=== PATIENT | male | born 1955 | race Caucasian/White ===

== ENCOUNTER 2017-05-07 15:05 | Inpatient (IN) | payer OTHER ==
[~2017-05-07] VITALS: Ht 170.2 cm; Wt 115.0 kg
[2017-05-07 15:54] LABS: BASE EXCESS -5.1 mEq/L (-3 to +3); BICARBONATE 28.7 mEq/L (22-26); CARBOXY HGB 7.9 % (0-5); COMMENTS - BLOOD GASES A+C+; DEVICE VENT; FI02 100 %; METHEMOGLOBIN 1.8 % (0-1.5); MODE AC; PCO2 106 mm Hg (35-45); PO2 403 mm Hg (80-100); SITE RR; pH 7.04 (7.35-7.45)
[2017-05-07 15:55] LABS: MECHANICAL RATE 24 resp/min; PEEP 5 CM/H20; TIDAL VOLUME 550 ML; TOTAL RESP RATE 24 resp/min
[2017-05-07 15:55] LABS: ANION GAP 19 MEQ/L (2-14); CHLORIDE 99 mEq/L (99-109); CREATININE 3.3 mg/dL (0.6-1.3); GLUCOSE 138 mg/dL (70-99); ISTAT DEVICE 359068; POTASSIUM > 6.0 mEq/L (3.7-5.4); SODIUM 135 mEq/L (136-147); UREA NITROGEN (BUN) 43 mg/dL (9-23)
[2017-05-07 16:03] LABS: EOSINOPHIL (%) 0 % (0-5); HEMATOCRIT 46.9 % (38.0-50.0); IMMATURE GRANULOCYTE (%) 1.8 % (0.0-0.7); IMMATURE GRANULOCYTE COUNT 0.4 K/uL; INSTRUMENT ABS NEUTROPHIL CT 16.6 K/uL; LYMPHOCYTE COUNT 1.8 K/uL (1.0-2.8); MCH 31.3 PG (29.0-34.0); MCHC 31.1 G/DL (30.0-36.0); MCV 100.6 FL (86-99); MEAN PLAT.VOLUME 12.2 uM^3 (9.0-12.4); MONOCYTE (%) 9.8 % (3-12); NEUTROPHIL (%) 79.7 % (45-76); NEUTROPHIL COUNT 16.6 K/uL (1.8-6.4); PLATELET COUNT 226 K/uL (156-360); RBC DIS.WIDTH-CV 14.6 % (11.8-14.6); RBC DIS.WIDTH-SD 54.3 % (39-53); RED BLOOD COUNT 4.66 M/uL (4.00-5.50); WHITE BLOOD COUNT 20.8 K/uL (4.1-10.2)
[2017-05-07 16:14] LABS: CHLORIDE 101 mEq/L (99-109); SODIUM 143 mEq/L (136-147)
[2017-05-07 16:15] LABS: ADD MIUA? YES; BILIRUBIN NEGATIVE; BLOOD NEGATIVE; COLOR AMBER ((YELLOW)); GLUCOSE (STRIP) NEGATIVE; KETONES NEGATIVE; LEUKOCYTES NEGATIVE; NITRITE NEGATIVE; PROTEIN (STRIP) 30; SPECIFIC GRAVITY 1.015 (1.000-1.030)
[2017-05-07 16:15] LABS: AMYLASE 266 IU/L (1-118)
[2017-05-07 16:15] LABS: INTER. NORMALIZED RATIO 1.2; PROTHROMBIN TIME 11.9 (9.2-11.2); PTT 22.4 (25-32)
[2017-05-07 16:16] LABS: GLUCOSE 155 mg/dL (70-99)
[2017-05-07 16:17] LABS: ANION GAP 20 MEQ/L (2-14)
[2017-05-07 16:18] LABS: TOTAL BILIRUBIN 0.4 mg/dL (0.0-1.0)
[2017-05-07 16:19] LABS: ALKALINE PHOSPHATASE 73 IU/L (3-129); SERUM ETHYL ALCOHOL < 10 mg/dL
[2017-05-07 16:20] LABS: GFR ESTIMATE (CALCULATED) 19 mL/min/
[2017-05-07 16:21] LABS: DIRECT BILIRUBIN 0.2 mg/dL (0.0-0.3); UREA NITROGEN (BUN) 34 mg/dL (9-23)
[2017-05-07 16:23] LABS: AMPHETAMINE NEGATIVE (500 ng/mL); BARBITURATES NEGATIVE (200 ng/mL); BENZODIAZEPINES NEGATIVE (150 ng/mL); COCAINE NEGATIVE (150 ng/mL); INTERNAL CONTROLS VALID? YES; METHADONE PRESUMPTIVE POSITIVE (200 ng/mL); METHAMPHETAMINE NEGATIVE (500 ng/mL); OPIATES (MORPHINE) PRESUMPTIVE POSITIVE (100 ng/mL); OXYCODONE PRESUMPTIVE POSITIVE (100 ng/mL); PHENCYCLIDINE NEGATIVE (25 ng/mL); PROPOXYPHENE NEGATIVE (300 ng/mL); THC CANNABINOIDS PRESUMPTIVE POSITIVE (50 ng/mL); TRICYCLIC ANTIDEPRESSANTS NEGATIVE (300 ng/mL)
[2017-05-07 16:23] LABS: LIPASE 318 U/L (1.0-51.0)
[2017-05-07 16:24] LABS: ADD MEDTOX COMMENT Y
[2017-05-07 16:34] LABS: TROP-I INTERPRETATION POSITIVE; TROPONIN-I 3.64 ng/mL (0.0-0.30)
[2017-05-07 16:56] LABS: BACTERIA 1+ /HPF; CASTS PRESENT /LPF; CRYSTALS NONE SEEN; EPITHELIAL CELLS RARE /HPF; MUCUS RARE /LPF; RED BLOOD CELLS 0-5 /HPF (0-5); UCUL ADDED? NO
[2017-05-07 17:05] LABS: CK-MB 79.9 ng/mL (0.0-4.9)
[2017-05-07 17:18] LABS: TOTAL CK 15178 IU/L (1-294)
[2017-05-07 17:19] LABS: CREATINE KINASE 15178 IU/L (1-294)
[2017-05-07 17:34] LABS: BASE EXCESS -5.4 mEq/L (-3 to +3); CARBOXY HGB 5.1 % (0-5); COMMENTS - BLOOD GASES C+; DEVICE VENT; FI02 80 %; METHEMOGLOBIN 1.9 % (0-1.5); PCO2 70 mm Hg (35-45); PO2 142 mm Hg (80-100); SITE RB; pH 7.16 (7.35-7.45)
[2017-05-07 17:35] LABS: MECHANICAL RATE 28 resp/min; MODE AC; PEEP 5 CM/H20; TIDAL VOLUME 550 ML; TOTAL RESP RATE 28 resp/min
[2017-05-07 17:38] LABS: CREATININE 3.4 mg/dL (0.6-1.3); POTASSIUM 4.6 mEq/L (3.7-5.4)
[2017-05-07 19:30] VITALS: BP 153/107
[2017-05-07 19:45] VITALS: BP 153/107
[2017-05-07 20:00] VITALS: BP 180/126
[2017-05-07 20:17] LABS: BICARBONATE 21.9 mEq/L (22-26); CARBOXY HGB 2.9 % (0-5); COMMENTS - BLOOD GASES C+; METHEMOGLOBIN 2.6 % (0-1.5); PCO2 56 mm Hg (35-45); PO2 141 mm Hg (80-100); SITE LR
[2017-05-07 20:18] LABS: DEVICE 840; FI02 80 %; MECHANICAL RATE 28 resp/min; MODE AC; PEEP 5 CM/H20; TIDAL VOLUME 550 ML; TOTAL RESP RATE 28 resp/min
[2017-05-07 21:00] VITALS: BP 135/95
[2017-05-07 21:06] LABS: HEMATOCRIT 45.9 % (38.0-50.0); MCH 31.1 PG (29.0-34.0); MCHC 32.5 G/DL (30.0-36.0); MCV 95.8 FL (86-99); MEAN PLAT.VOLUME 12.2 uM^3 (9.0-12.4); PLATELET COUNT 171 K/uL (156-360); RBC DIS.WIDTH-CV 14.3 % (11.8-14.6); RBC DIS.WIDTH-SD 50.8 % (39-53); RED BLOOD COUNT 4.79 M/uL (4.00-5.50); WHITE BLOOD COUNT 17.6 K/uL (4.1-10.2)
[2017-05-07 21:34] LABS: METH RESISTANT S AUREUS PCR NEGATIVE (NEGATIVE)
[2017-05-07 21:35] LABS: TROP-I INTERPRETATION POSITIVE; TROPONIN-I 8.36 ng/mL (0.0-0.30)
[2017-05-07 21:40] LABS: PROBE CHECK PASS; SPECIMEN PROCESSING CONTROL PASS
[2017-05-07 21:44] LABS: BASE EXCESS -7.1 mEq/L (-3 to +3); BICARBONATE 22.6 mEq/L (22-26); CARBOXY HGB 2.3 % (0-5); COMMENTS - BLOOD GASES C+; DEVICE 840; FI02 100 %; METHEMOGLOBIN 2.4 % (0-1.5); PCO2 62 mm Hg (35-45); PO2 339 mm Hg (80-100); SITE LR; pH 7.17 (7.35-7.45)
[2017-05-07 21:45] LABS: MECHANICAL RATE 28 resp/min; MODE AC; PEEP 5 CM/H20; TIDAL VOLUME 550 ML; TOTAL RESP RATE 28 resp/min
[2017-05-07 22:00] VITALS: BP 84/62
[2017-05-07 22:00] LABS: ALKALINE PHOSPHATASE 77 IU/L (3-129); ANION GAP 18 MEQ/L (2-14); CHLORIDE 103 MEQ/L (99-109); GFR ESTIMATE (CALCULATED) 21 mL/min/; GLUCOSE 130 mg/dL (70-99); MAGNESIUM 2.2 mg/dl (1.3-2.7); SAMPLE HEMOLYSIS CHECK 2; SAMPLE ICTERIC CHECK 0; SAMPLE LIPEMIA CHECK 0; SODIUM 143 MEQ/L (136-147); TOTAL CK 15961 IU/L (1-294); UREA NITROGEN (BUN) 39 mg/dL (9-23)
[2017-05-07 22:01] LABS: CREATINE KINASE 15961 IU/L (1-294)
[2017-05-07 22:32] LABS: CK-MB 142.5 ng/mL (0.0-4.9)
[2017-05-07 22:42] LABS: NO-CHARGE AST (GOT) 987 IU/L (15-37)
[2017-05-07 23:00] VITALS: BP 87/56
[2017-05-07 23:04] LABS: BASE EXCESS -2.9 mEq/L (-3 to +3); BICARBONATE 24.8 mEq/L (22-26); CARBOXY HGB 1.8 % (0-5); COMMENTS - BLOOD GASES C; DEVICE 840; FI02 100 %; MECHANICAL RATE 30 resp/min; METHEMOGLOBIN 2.2 % (0-1.5); MODE AC; PCO2 54 mm Hg (35-45); PO2 352 mm Hg (80-100); SITE LR ALINE; TOTAL RESP RATE 30 resp/min; pH 7.27 (7.35-7.45)
[2017-05-07 23:05] LABS: PEEP 5 CM/H20; TIDAL VOLUME 600 ML
[2017-05-08] VITALS (11 sets, daily range): BP systolic 105–122; BP diastolic 64–77
[2017-05-08 01:24] LABS: BASE EXCESS -1.1 mEq/L (-3 to +3); BICARBONATE 24.8 mEq/L (22-26); CARBOXY HGB 1.6 % (0-5); COMMENTS - BLOOD GASES C; DEVICE 840; FI02 100 %; MECHANICAL RATE 24 resp/min; METHEMOGLOBIN 2.4 % (0-1.5); MODE AC; PCO2 45 mm Hg (35-45); PEEP 5 CM/H20; PO2 409 mm Hg (80-100); SITE LR ALINE; TIDAL VOLUME 650 ML; TOTAL RESP RATE 24 resp/min; pH 7.35 (7.35-7.45)
[2017-05-08 01:46] LABS: CHLORIDE 107 mEq/L (99-109); POTASSIUM 4.7 mEq/L (3.7-5.4); SODIUM 144 mEq/L (136-147)
[2017-05-08 01:47] LABS: MAGNESIUM 1.6 mg/dL (1.3-2.7)
[2017-05-08 01:48] LABS: GLUCOSE 151 mg/dL (70-99)
[2017-05-08 01:49] LABS: ANION GAP 14 MEQ/L (2-14)
[2017-05-08 01:52] LABS: GFR ESTIMATE (CALCULATED) 18 mL/min/
[2017-05-08 01:53] LABS: UREA NITROGEN (BUN) 44 mg/dL (9-23)
[2017-05-08 01:55] LABS: INTER. NORMALIZED RATIO 1.2; LIPASE 62 U/L (1.0-51.0); PROTHROMBIN TIME 12.2 (9.2-11.2); PTT 25.1 (25-32)
[2017-05-08 02:24] LABS: CREATINE KINASE 15316 IU/L (1-294)
[2017-05-08 03:09] LABS: INTERNAL CONTROL VALID? YES
[2017-05-08 03:40] LABS: C DIFF TOXIN NEGATIVE (NEGATIVE)
[2017-05-08 03:43] LABS: PROBE CHECK PASS; SPECIMEN PROCESSING CONTROL PASS
[2017-05-08 05:23] LABS: HEMATOCRIT 39.3 % (38.0-50.0); MCH 31.3 PG (29.0-34.0); MCHC 33.8 G/DL (30.0-36.0); MCV 92.5 FL (86-99); MEAN PLAT.VOLUME 12.1 uM^3 (9.0-12.4); PLATELET COUNT 147 K/uL (156-360); RBC DIS.WIDTH-CV 14.3 % (11.8-14.6); RBC DIS.WIDTH-SD 48.8 % (39-53); RED BLOOD COUNT 4.25 M/uL (4.00-5.50); WHITE BLOOD COUNT 12.2 K/uL (4.1-10.2)
[2017-05-08 05:59] LABS: ANION GAP 12 MEQ/L (2-14); CHLORIDE 107 MEQ/L (99-109); GFR ESTIMATE (CALCULATED) 19 mL/min/; GLUCOSE 134 mg/dL (70-99); SAMPLE HEMOLYSIS CHECK 0; SAMPLE ICTERIC CHECK 0; SAMPLE LIPEMIA CHECK 0; SODIUM 143 MEQ/L (136-147); UREA NITROGEN (BUN) 49 mg/dL (9-23)
[2017-05-08 07:21] LABS: BASE EXCESS 1.1 mEq/L (-3 to +3); BICARBONATE 25.1 mEq/L (22-26); CARBOXY HGB 1.6 % (0-5); PCO2 37 mm Hg (35-45); PO2 76 mm Hg (80-100); SITE ALINE; pH 7.44 (7.35-7.45)
[2017-05-08 07:22] LABS: COMMENTS - BLOOD GASES C+ANA; DEVICE 840 PB; FI02 50 %; MECHANICAL RATE 24 resp/min; MODE AC; PEEP 5 CM/H20; TIDAL VOLUME 650 ML; TOTAL RESP RATE 24 resp/min
[2017-05-08 13:16] LABS: ANION GAP 14 MEQ/L (2-14); CHLORIDE 109 MEQ/L (99-109); POTASSIUM 3.9 MEQ/L (3.7-5.4); SAMPLE HEMOLYSIS CHECK 0; SAMPLE ICTERIC CHECK 0; SAMPLE LIPEMIA CHECK 0; SODIUM 143 MEQ/L (136-147)
[2017-05-08 13:18] LABS: MAGNESIUM 1.6 mg/dl (1.3-2.7); TOTAL BILIRUBIN 0.7 MG/DL (0.0-1.0)
[2017-05-08 13:29] LABS: TROP-I INTERPRETATION POSITIVE; TROPONIN-I 12.77 ng/mL (0.0-0.30)
[2017-05-08 14:02] LABS: CK-MB 55.4 ng/mL (0.0-4.9)
[2017-05-08 14:30] LABS: ALKALINE PHOSPHATASE 50 IU/L (3-129); GFR ESTIMATE (CALCULATED) 17 mL/min/; UREA NITROGEN (BUN) 53 mg/dL (9-23)
[2017-05-08 14:33] LABS: GLUCOSE 99 mg/dL (70-99)
[2017-05-08] MEDS ORDERED: PERPHENAZINE4 MG PO (14:35)
[2017-05-08] MEDS ORDERED: FUROSEMIDE20 MG PO (14:36)
[2017-05-08] MEDS ORDERED: GRALISE300 MG PO (14:37)
[2017-05-08] MEDS ORDERED: CLOPIDOGREL75 MG PO (14:38)
[2017-05-08] MEDS ORDERED: LOSARTAN POTAS100 MG PO (14:38)
[2017-05-08] MEDS ORDERED: SERTRALINE HCL100 MG PO (14:39)
[2017-05-08] MEDS ORDERED: TRAZODONE HCL50 MG PO (14:39)
[2017-05-08] MEDS ORDERED: AMLODIPINE BESYL5 MG PO (14:40)
[2017-05-08] MEDS ORDERED: ATORVASTATIN CA80 MG PO (14:40)
[2017-05-08 15:45] LABS: TOTAL CK 6778 IU/L (1-294)
[2017-05-08 15:46] LABS: CREATINE KINASE 6778 IU/L (1-294)
[2017-05-08 18:04] LABS: ANION GAP 12 MEQ/L (2-14); CHLORIDE 110 MEQ/L (99-109); POTASSIUM 3.8 MEQ/L (3.7-5.4); SAMPLE HEMOLYSIS CHECK 0; SAMPLE ICTERIC CHECK 0; SAMPLE LIPEMIA CHECK 0; SODIUM 144 MEQ/L (136-147)
[2017-05-08 18:04] LABS: ANION GAP 10 MEQ/L (2-14); CHLORIDE 111 MEQ/L (99-109); MAGNESIUM 1.6 mg/dl (1.3-2.7); POTASSIUM 3.8 MEQ/L (3.7-5.4); SAMPLE HEMOLYSIS CHECK 0; SAMPLE ICTERIC CHECK 0; SAMPLE LIPEMIA CHECK 0; SODIUM 144 MEQ/L (136-147); TOTAL BILIRUBIN 0.6 MG/DL (0.0-1.0)
[2017-05-08 18:10] LABS: GFR ESTIMATE (CALCULATED) 20 mL/min/; GLUCOSE 85 mg/dL (70-99); UREA NITROGEN (BUN) 48 mg/dL (9-23)
[2017-05-08 18:34] LABS: ALKALINE PHOSPHATASE 46 IU/L (3-129); GFR ESTIMATE (CALCULATED) 19 mL/min/; GLUCOSE 86 mg/dL (70-99); UREA NITROGEN (BUN) 48 mg/dL (9-23)
[2017-05-08 18:44] LABS: TROP-I INTERPRETATION POSITIVE; TROPONIN-I 8.17 ng/mL (0.0-0.30)
[2017-05-08 19:18] LABS: TOTAL CK 5451 IU/L (1-294)
[2017-05-08 19:24] LABS: CREATINE KINASE 5451 IU/L (1-294)
[2017-05-08 19:42] LABS: CK-MB 40.1 ng/mL (0.0-4.9)
[2017-05-08 22:13] LABS: ANION GAP 10 MEQ/L (2-14); CHLORIDE 109 MEQ/L (99-109); GFR ESTIMATE (CALCULATED) 26 mL/min/; GLUCOSE 86 mg/dL (70-99); POTASSIUM 3.6 MEQ/L (3.7-5.4); SAMPLE HEMOLYSIS CHECK 0; SAMPLE ICTERIC CHECK 0; SAMPLE LIPEMIA CHECK 0; SODIUM 142 MEQ/L (136-147); UREA NITROGEN (BUN) 38 mg/dL (9-23)
[2017-05-09 00:45] LABS: CHLORIDE 111 mEq/L (99-109); POTASSIUM 3.9 mEq/L (3.7-5.4); SODIUM 141 mEq/L (136-147)
[2017-05-09 00:46] LABS: MAGNESIUM 1.7 mg/dL (1.3-2.7)
[2017-05-09 00:47] LABS: GLUCOSE 91 mg/dL (70-99)
[2017-05-09 00:49] LABS: ANION GAP 10 MEQ/L (2-14)
[2017-05-09 00:51] LABS: ALKALINE PHOSPHATASE 55 IU/L (3-129); GFR ESTIMATE (CALCULATED) 29 mL/min/
[2017-05-09 00:52] LABS: UREA NITROGEN (BUN) 31 mg/dL (9-23)
[2017-05-09 01:00] LABS: CK-MB 30.6 ng/mL (0.0-4.9); TROP-I INTERPRETATION POSITIVE; TROPONIN-I 4.57 ng/mL (0.0-0.30)
[2017-05-09 01:06] LABS: TOTAL CK 6622 IU/L (1-294)
[2017-05-09 01:07] LABS: CREATINE KINASE 6622 IU/L (1-294); TOTAL BILIRUBIN 0.6 mg/dL (0.0-1.0)
[2017-05-09 05:42] LABS: EOSINOPHIL (%) 0.2 % (0-5); HEMATOCRIT 32.5 % (38.0-50.0); IMMATURE GRANULOCYTE (%) 0.3 % (0.0-0.7); INSTRUMENT ABS NEUTROPHIL CT 4.2 K/uL; LYMPHOCYTE COUNT 1.1 K/uL (1.0-2.8); MCHC 33.5 G/DL (30.0-36.0); MCV 92.3 FL (86-99); MEAN PLAT.VOLUME 11.9 uM^3 (9.0-12.4); MONOCYTE (%) 12.1 % (3-12); MONOCYTE COUNT 0.7 K/uL (0-0.8); NEUTROPHIL (%) 69.1 % (45-76); NEUTROPHIL COUNT 4.2 K/uL (1.8-6.4); PLATELET COUNT 108 K/uL (156-360); RBC DIS.WIDTH-CV 14.6 % (11.8-14.6); RBC DIS.WIDTH-SD 50.2 % (39-53); RED BLOOD COUNT 3.52 M/uL (4.00-5.50)
[2017-05-09 06:35] LABS: TROP-I INTERPRETATION POSITIVE; TROPONIN-I 3.46 ng/mL (0.0-0.30)
[2017-05-09 08:04] LABS: ALKALINE PHOSPHATASE 44 IU/L (3-129); CHLORIDE 108 MEQ/L (99-109); GLUCOSE 93 mg/dL (70-99); POTASSIUM 3.6 MEQ/L (3.7-5.4); SAMPLE HEMOLYSIS CHECK 0; SAMPLE ICTERIC CHECK 0; SAMPLE LIPEMIA CHECK 0; SODIUM 141 MEQ/L (136-147); TOTAL BILIRUBIN 0.6 MG/DL (0.0-1.0); UREA NITROGEN (BUN) 22 mg/dL (9-23)
[2017-05-09 08:05] LABS: ANION GAP 9 MEQ/L (2-14); GFR ESTIMATE (CALCULATED) 41 mL/min/; VANCOMYCIN, TROUGH 6.9 MCG/ML (10-20)
[2017-05-09 08:16] LABS: TOTAL CK 4803 IU/L (1-294)
[2017-05-09 08:17] LABS: CREATINE KINASE 4803 IU/L (1-294)
[2017-05-09 08:31] LABS: CK-MB 29.5 ng/mL (0.0-4.9)
[2017-05-09 10:10] LABS: BASE EXCESS 1.1 mEq/L (-3 to +3); METHEMOGLOBIN 1.9 % (0-1.5); PCO2 36 mm Hg (35-45); PO2 82 mm Hg (80-100); SITE ALINE; pH 7.45 (7.35-7.45)
[2017-05-09 10:11] LABS: COMMENTS - BLOOD GASES +C; DEVICE VENT; FI02 30 %; MODE TUBE COMP; TOTAL RESP RATE 12 resp/min
[2017-05-09 10:12] LABS: PEEP 5 CM/H20
[2017-05-09 10:22] LABS: ANION GAP 8 MEQ/L (2-14); CHLORIDE 107 MEQ/L (99-109); GFR ESTIMATE (CALCULATED) 47 mL/min/; GLUCOSE 90 mg/dL (70-99); POTASSIUM 3.9 MEQ/L (3.7-5.4); SAMPLE HEMOLYSIS CHECK 0; SAMPLE ICTERIC CHECK 0; SAMPLE LIPEMIA CHECK 0; SODIUM 140 MEQ/L (136-147); UREA NITROGEN (BUN) 18 mg/dL (9-23)
[2017-05-09 12:00] VITALS: BP 107/73
[2017-05-09 12:48] LABS: TROP-I INTERPRETATION POSITIVE
[2017-05-09 13:35] LABS: CK-MB 18.5 ng/mL (0.0-4.9)
[2017-05-09 13:47] LABS: ALKALINE PHOSPHATASE 42 IU/L (3-129); ANION GAP 5 MEQ/L (2-14); CHLORIDE 108 MEQ/L (99-109); CREATINE KINASE 3581 IU/L (1-294); GFR ESTIMATE (CALCULATED) 55 mL/min/; GLUCOSE 91 mg/dL (70-99); POTASSIUM 3.9 MEQ/L (3.7-5.4); SAMPLE HEMOLYSIS CHECK 0; SAMPLE ICTERIC CHECK 0; SAMPLE LIPEMIA CHECK 0; SODIUM 140 MEQ/L (136-147); TOTAL BILIRUBIN 0.6 MG/DL (0.0-1.0); TOTAL CK 3581 IU/L (1-294); UREA NITROGEN (BUN) 15 mg/dL (9-23)
[2017-05-09 15:01] LABS: INTER. NORMALIZED RATIO 1.2; PROTHROMBIN TIME 11.9 (9.2-11.2)
[2017-05-09 15:07] LABS: PTT 46.7 (25-32)
[2017-05-09 16:18] LABS: ANION GAP 6 MEQ/L (2-14); CHLORIDE 109 MEQ/L (99-109); GFR ESTIMATE (CALCULATED) 55 mL/min/; GLUCOSE 92 mg/dL (70-99); SAMPLE HEMOLYSIS CHECK 0; SAMPLE ICTERIC CHECK 0; SAMPLE LIPEMIA CHECK 0; SODIUM 140 MEQ/L (136-147); UREA NITROGEN (BUN) 14 mg/dL (9-23)
[2017-05-09 18:48] LABS: TROP-I INTERPRETATION POSITIVE; TROPONIN-I 2.36 ng/mL (0.0-0.30)
[2017-05-09 18:49] LABS: ALKALINE PHOSPHATASE 43 IU/L (3-129); ANION GAP 6 MEQ/L (2-14); CHLORIDE 107 MEQ/L (99-109); GFR ESTIMATE (CALCULATED) > 59 mL/min/; GLUCOSE 95 mg/dL (70-99); MAGNESIUM 2.1 mg/dl (1.3-2.7); POTASSIUM 4.1 MEQ/L (3.7-5.4); SAMPLE HEMOLYSIS CHECK 0; SAMPLE ICTERIC CHECK 0; SAMPLE LIPEMIA CHECK 0; SODIUM 138 MEQ/L (136-147); TOTAL BILIRUBIN 0.7 MG/DL (0.0-1.0); TOTAL CK 3042 IU/L (1-294); UREA NITROGEN (BUN) 12 mg/dL (9-23)
[2017-05-09 18:50] LABS: CREATINE KINASE 3042 IU/L (1-294)
[2017-05-09 19:12] LABS: CK-MB 17.8 ng/mL (0.0-4.9)
[2017-05-09 21:31] LABS: ANION GAP 9 MEQ/L (2-14); CHLORIDE 107 MEQ/L (99-109); GFR ESTIMATE (CALCULATED) > 59 mL/min/; GLUCOSE 92 mg/dL (70-99); SAMPLE HEMOLYSIS CHECK 0; SAMPLE ICTERIC CHECK 0; SAMPLE LIPEMIA CHECK 0; SODIUM 139 MEQ/L (136-147); UREA NITROGEN (BUN) 10 mg/dL (9-23)
[2017-05-10 00:47] LABS: CHLORIDE 107 mEq/L (99-109); SODIUM 138 mEq/L (136-147)
[2017-05-10 00:50] LABS: GLUCOSE 96 mg/dL (70-99)
[2017-05-10 00:51] LABS: ANION GAP 6 MEQ/L (2-14)
[2017-05-10 00:52] LABS: TOTAL BILIRUBIN 0.7 mg/dL (0.0-1.0)
[2017-05-10 00:53] LABS: ALKALINE PHOSPHATASE 49 IU/L (3-129)
[2017-05-10 00:54] LABS: GFR ESTIMATE (CALCULATED) > 59 mL/min/
[2017-05-10 00:55] LABS: UREA NITROGEN (BUN) 9 mg/dL (9-23)
[2017-05-10 00:57] LABS: CREATINE KINASE 2873 IU/L (1-294); TOTAL CK 2873 IU/L (1-294)
[2017-05-10 01:01] LABS: TROP-I INTERPRETATION POSITIVE; TROPONIN-I 2.12 ng/mL (0.0-0.30)
[2017-05-10 04:32] LABS: CHLORIDE 108 mEq/L (99-109); POTASSIUM 4.5 mEq/L (3.7-5.4); SODIUM 140 mEq/L (136-147)
[2017-05-10 04:34] LABS: GLUCOSE 86 mg/dL (70-99)
[2017-05-10 04:35] LABS: ANION GAP 7 MEQ/L (2-14)
[2017-05-10 04:38] LABS: GFR ESTIMATE (CALCULATED) > 59 mL/min/
[2017-05-10 04:39] LABS: UREA NITROGEN (BUN) 8 mg/dL (9-23)
[2017-05-10 05:59] LABS: EOSINOPHIL (%) 0.6 % (0-5); HEMATOCRIT 31.4 % (38.0-50.0); IMMATURE GRANULOCYTE (%) 0.2 % (0.0-0.7); INSTRUMENT ABS NEUTROPHIL CT 3.7 K/uL; LYMPHOCYTE COUNT 0.9 K/uL (1.0-2.8); MCHC 34.4 G/DL (30.0-36.0); MCV 93.2 FL (86-99); MEAN PLAT.VOLUME 12.6 uM^3 (9.0-12.4); MONOCYTE (%) 11.4 % (3-12); MONOCYTE COUNT 0.6 K/uL (0-0.8); NEUTROPHIL (%) 70.6 % (45-76); NEUTROPHIL COUNT 3.7 K/uL (1.8-6.4); PLATELET COUNT 106 K/uL (156-360); RBC DIS.WIDTH-CV 14.7 % (11.8-14.6); RBC DIS.WIDTH-SD 50.2 % (39-53); RED BLOOD COUNT 3.37 M/uL (4.00-5.50); WHITE BLOOD COUNT 5.2 K/uL (4.1-10.2)
[2017-05-10 06:29] LABS: TROP-I INTERPRETATION POSITIVE
[2017-05-10 06:32] LABS: ALKALINE PHOSPHATASE 49 IU/L (3-129); ANION GAP 5 MEQ/L (2-14); CHLORIDE 106 MEQ/L (99-109); GFR ESTIMATE (CALCULATED) > 59 mL/min/; GLUCOSE 81 mg/dL (70-99); MAGNESIUM 2.2 mg/dl (1.3-2.7); POTASSIUM 4.2 MEQ/L (3.7-5.4); SAMPLE HEMOLYSIS CHECK 0; SAMPLE ICTERIC CHECK 0; SAMPLE LIPEMIA CHECK 0; SODIUM 138 MEQ/L (136-147); TOTAL BILIRUBIN 0.8 MG/DL (0.0-1.0); UREA NITROGEN (BUN) 7 mg/dL (9-23)
[2017-05-10 07:23] LABS: CK-MB 12.1 ng/mL (0.0-4.9)
[2017-05-10 07:54] LABS: CREATINE KINASE 2197 IU/L (1-294); TOTAL CK 2197 IU/L (1-294)
[2017-05-10 13:21] LABS: TROP-I INTERPRETATION POSITIVE; TROPONIN-I 2.29 ng/mL (0.0-0.30)
[2017-05-10 13:45] LABS: ALKALINE PHOSPHATASE 55 IU/L (3-129); ANION GAP 7 MEQ/L (2-14); CHLORIDE 108 MEQ/L (99-109); GFR ESTIMATE (CALCULATED) > 59 mL/min/; GLUCOSE 90 mg/dL (70-99); MAGNESIUM 2.2 mg/dl (1.3-2.7); POTASSIUM 4.4 MEQ/L (3.7-5.4); SAMPLE HEMOLYSIS CHECK 0; SAMPLE ICTERIC CHECK 0; SAMPLE LIPEMIA CHECK 0; SODIUM 141 MEQ/L (136-147); TOTAL BILIRUBIN 0.9 MG/DL (0.0-1.0); UREA NITROGEN (BUN) 6 mg/dL (9-23)
[2017-05-10 16:18] LABS: CREATINE KINASE 1901 IU/L (1-294)
[2017-05-10 19:40] LABS: TROP-I INTERPRETATION POSITIVE; TROPONIN-I 3.06 ng/mL (0.0-0.30)
[2017-05-10 19:41] LABS: CHLORIDE 110 mEq/L (99-109); POTASSIUM 4.3 mEq/L (3.7-5.4); SODIUM 140 mEq/L (136-147)
[2017-05-10 19:42] LABS: MAGNESIUM 2.1 mg/dL (1.3-2.7)
[2017-05-10 19:44] LABS: GLUCOSE 86 mg/dL (70-99)
[2017-05-10 19:45] LABS: ANION GAP 8 MEQ/L (2-14)
[2017-05-10 19:48] LABS: ALKALINE PHOSPHATASE 56 IU/L (3-129); GFR ESTIMATE (CALCULATED) > 59 mL/min/
[2017-05-10 19:49] LABS: TOTAL BILIRUBIN 1.2 mg/dL (0.0-1.0); UREA NITROGEN (BUN) 7 mg/dL (9-23)
[2017-05-10 19:51] LABS: TOTAL CK 2027 IU/L (1-294)
[2017-05-10 19:53] LABS: CREATINE KINASE 2027 IU/L (1-294)
[2017-05-10 19:58] LABS: CK-MB 4.5 ng/mL (0.0-4.9)
[2017-05-11] VITALS (9 sets, daily range): BP systolic 164–215; BP diastolic 92–112
[2017-05-11 05:33] LABS: EOSINOPHIL (%) 0.2 % (0-5); HEMATOCRIT 29.7 % (38.0-50.0); IMMATURE GRANULOCYTE (%) 0.4 % (0.0-0.7); INSTRUMENT ABS NEUTROPHIL CT 3.7 K/uL; LYMPHOCYTE COUNT 1.1 K/uL (1.0-2.8); MCH 31.4 PG (29.0-34.0); MCV 95.2 FL (86-99); MEAN PLAT.VOLUME 12.1 uM^3 (9.0-12.4); MONOCYTE (%) 13.1 % (3-12); MONOCYTE COUNT 0.7 K/uL (0-0.8); NEUTROPHIL (%) 66.4 % (45-76); NEUTROPHIL COUNT 3.7 K/uL (1.8-6.4); PLATELET COUNT 99 K/uL (156-360); RBC DIS.WIDTH-CV 14.9 % (11.8-14.6); RBC DIS.WIDTH-SD 51.2 % (39-53); RED BLOOD COUNT 3.12 M/uL (4.00-5.50); WHITE BLOOD COUNT 5.6 K/uL (4.1-10.2)
[2017-05-11 05:51] LABS: ANION GAP 9 MEQ/L (2-14); CHLORIDE 112 MEQ/L (99-109); GFR ESTIMATE (CALCULATED) 44 mL/min/; GLUCOSE 101 mg/dL (70-99); MAGNESIUM 2.1 mg/dl (1.3-2.7); POTASSIUM 3.6 MEQ/L (3.7-5.4); SAMPLE HEMOLYSIS CHECK 0; SAMPLE ICTERIC CHECK 0; SAMPLE LIPEMIA CHECK 0; SODIUM 145 MEQ/L (136-147); UREA NITROGEN (BUN) 10 mg/dL (9-23)
[2017-05-11 11:29] LABS: BASE EXCESS 0.1 mEq/L (-3 to +3); BICARBONATE 23.3 mEq/L (22-26); METHEMOGLOBIN 2.1 % (0-1.5); PCO2 32 mm Hg (35-45); PO2 82 mm Hg (80-100); pH 7.47 (7.35-7.45)
[2017-05-11 11:30] LABS: COMMENTS - BLOOD GASES C+; DEVICE VENT; FI02 26 %; MODE TC; PEEP 5 CM/H20; SITE LR ALINE; TOTAL RESP RATE 23 resp/min
[2017-05-12] VITALS (23 sets, daily range): BP systolic 117–182; BP diastolic 72–122
[2017-05-12 06:43] LABS: EOSINOPHIL (%) 0 % (0-5); HEMATOCRIT 32.8 % (38.0-50.0); IMMATURE GRANULOCYTE (%) 1.6 % (0.0-0.7); IMMATURE GRANULOCYTE COUNT 0.1 K/uL; INSTRUMENT ABS NEUTROPHIL CT 6.5 K/uL; LYMPHOCYTE COUNT 0.8 K/uL (1.0-2.8); MCH 30.4 PG (29.0-34.0); MCHC 33.2 G/DL (30.0-36.0); MCV 91.6 FL (86-99); MEAN PLAT.VOLUME 11.5 uM^3 (9.0-12.4); MONOCYTE (%) 11.5 % (3-12); NEUTROPHIL (%) 77.7 % (45-76); NEUTROPHIL COUNT 6.5 K/uL (1.8-6.4); PLATELET COUNT 107 K/uL (156-360); RBC DIS.WIDTH-CV 14.4 % (11.8-14.6); RBC DIS.WIDTH-SD 48.5 % (39-53); RED BLOOD COUNT 3.58 M/uL (4.00-5.50); WHITE BLOOD COUNT 8.4 K/uL (4.1-10.2)
[2017-05-12 07:17] LABS: ANION GAP 13 MEQ/L (2-14); CHLORIDE 110 MEQ/L (99-109); GFR ESTIMATE (CALCULATED) 34 mL/min/; GLUCOSE 133 mg/dL (70-99); POTASSIUM 4.2 MEQ/L (3.7-5.4); SAMPLE HEMOLYSIS CHECK 2; SAMPLE ICTERIC CHECK 0; SAMPLE LIPEMIA CHECK 0; SODIUM 146 MEQ/L (136-147)
[2017-05-12 07:18] LABS: UREA NITROGEN (BUN) 25 mg/dL (9-23)
[2017-05-12 15:41] LABS: HDL CHOLESTEROL 31 MG/DL (Desirable>=40); LDL CHOLESTEROL 147 mg/dL (Desirable<100); NON-HDL CHOLESTEROL 182 mg/dL (Desirable<160); TOTAL CHOLESTEROL 213 mg/dL (Desirable<200); TRIGLYCERIDES 177 MG/DL (Normal: <150)
[2017-05-13] VITALS (13 sets, daily range): BP systolic 117–172; BP diastolic 78–111
[2017-05-13 01:52] LABS: EOSINOPHIL (%) 0.1 % (0-5); HEMATOCRIT 37.2 % (38.0-50.0); IMMATURE GRANULOCYTE (%) 1.3 % (0.0-0.7); IMMATURE GRANULOCYTE COUNT 0.2 K/uL; INSTRUMENT ABS NEUTROPHIL CT 8.7 K/uL; MCH 30.9 PG (29.0-34.0); MCHC 33.9 G/DL (30.0-36.0); MCV 91.2 FL (86-99); MEAN PLAT.VOLUME 10.9 uM^3 (9.0-12.4); MONOCYTE (%) 12.2 % (3-12); MONOCYTE COUNT 1.4 K/uL (0-0.8); NEUTROPHIL (%) 77.2 % (45-76); NEUTROPHIL COUNT 8.7 K/uL (1.8-6.4); PLATELET COUNT 116 K/uL (156-360); RBC DIS.WIDTH-CV 14.4 % (11.8-14.6); RED BLOOD COUNT 4.08 M/uL (4.00-5.50); WHITE BLOOD COUNT 11.3 K/uL (4.1-10.2)
[2017-05-13 02:04] LABS: CHLORIDE 108 mEq/L (99-109); SODIUM 147 mEq/L (136-147)
[2017-05-13 02:07] LABS: GLUCOSE 113 mg/dL (70-99)
[2017-05-13 02:08] LABS: ANION GAP 15 MEQ/L (2-14)
[2017-05-13 02:10] LABS: GFR ESTIMATE (CALCULATED) 39 mL/min/
[2017-05-13 02:11] LABS: UREA NITROGEN (BUN) 24 mg/dL (9-23)
[2017-05-13 02:26] LABS: MAGNESIUM 1.4 mg/dL (1.3-2.7)
[2017-05-13 13:39] LABS: ANION GAP 12 MEQ/L (2-14); CHLORIDE 107 MEQ/L (99-109); GFR ESTIMATE (CALCULATED) 47 mL/min/; GLUCOSE 112 mg/dL (70-99); POTASSIUM 3.5 MEQ/L (3.7-5.4); SAMPLE HEMOLYSIS CHECK 0; SAMPLE ICTERIC CHECK 0; SAMPLE LIPEMIA CHECK 0; SODIUM 147 MEQ/L (136-147); UREA NITROGEN (BUN) 27 mg/dL (9-23)
[2017-05-14] VITALS (7 sets, daily range): BP systolic 117–159; BP diastolic 74–101
[2017-05-14 07:38] LABS: EOSINOPHIL (%) 1.2 % (0-5); EOSINOPHIL COUNT 0.1 K/uL (0-0.3); HEMATOCRIT 37.7 % (38.0-50.0); IMMATURE GRANULOCYTE (%) 1.2 % (0.0-0.7); IMMATURE GRANULOCYTE COUNT 0.1 K/uL; INSTRUMENT ABS NEUTROPHIL CT 7.2 K/uL; LYMPHOCYTE COUNT 1.3 K/uL (1.0-2.8); MCH 31.6 PG (29.0-34.0); MCHC 34.5 G/DL (30.0-36.0); MCV 91.7 FL (86-99); MEAN PLAT.VOLUME 11.6 uM^3 (9.0-12.4); MONOCYTE (%) 12.1 % (3-12); MONOCYTE COUNT 1.2 K/uL (0-0.8); NEUTROPHIL (%) 72.2 % (45-76); NEUTROPHIL COUNT 7.2 K/uL (1.8-6.4); PLATELET COUNT 117 K/uL (156-360); RBC DIS.WIDTH-CV 14.4 % (11.8-14.6); RBC DIS.WIDTH-SD 48.6 % (39-53); RED BLOOD COUNT 4.11 M/uL (4.00-5.50)
[2017-05-14 07:40] LABS: ANION GAP 14 MEQ/L (2-14); CHLORIDE 109 MEQ/L (99-109); GFR ESTIMATE (CALCULATED) 44 mL/min/; GLUCOSE 93 mg/dL (70-99); POTASSIUM 3.6 MEQ/L (3.7-5.4); SAMPLE HEMOLYSIS CHECK 1; SAMPLE ICTERIC CHECK 0; SAMPLE LIPEMIA CHECK 0; SODIUM 146 MEQ/L (136-147); UREA NITROGEN (BUN) 27 mg/dL (9-23)
[2017-05-14 07:42] LABS: MAGNESIUM 1.5 mg/dl (1.3-2.7)
[2017-05-15] VITALS (9 sets, daily range): BP systolic 100–144; BP diastolic 67–90
[2017-05-15 07:34] LABS: EOSINOPHIL (%) 2.1 % (0-5); EOSINOPHIL COUNT 0.2 K/uL (0-0.3); HEMATOCRIT 35.4 % (38.0-50.0); IMMATURE GRANULOCYTE (%) 1.2 % (0.0-0.7); IMMATURE GRANULOCYTE COUNT 0.1 K/uL; INSTRUMENT ABS NEUTROPHIL CT 5.4 K/uL; LYMPHOCYTE COUNT 1.4 K/uL (1.0-2.8); MCH 31.6 PG (29.0-34.0); MCHC 34.5 G/DL (30.0-36.0); MCV 91.7 FL (86-99); MEAN PLAT.VOLUME 11.9 uM^3 (9.0-12.4); MONOCYTE (%) 12.5 % (3-12); NEUTROPHIL (%) 66.8 % (45-76); NEUTROPHIL COUNT 5.4 K/uL (1.8-6.4); PLATELET COUNT 118 K/uL (156-360); RBC DIS.WIDTH-SD 47.3 % (39-53); RED BLOOD COUNT 3.86 M/uL (4.00-5.50); WHITE BLOOD COUNT 8.1 K/uL (4.1-10.2)
[2017-05-15 08:04] LABS: ANION GAP 10 MEQ/L (2-14); CHLORIDE 108 MEQ/L (99-109); GFR ESTIMATE (CALCULATED) 51 mL/min/; GLUCOSE 95 mg/dL (70-99); POTASSIUM 3.2 MEQ/L (3.7-5.4); SAMPLE HEMOLYSIS CHECK 0; SAMPLE ICTERIC CHECK 0; SAMPLE LIPEMIA CHECK 0; SODIUM 141 MEQ/L (136-147); UREA NITROGEN (BUN) 24 mg/dL (9-23)
[2017-05-15 08:06] LABS: MAGNESIUM 1.2 mg/dl (1.3-2.7)
[2017-05-16 02:55] VITALS: BP 152/75
[2017-05-16 05:37] LABS: EOSINOPHIL (%) 1.8 % (0-5); EOSINOPHIL COUNT 0.1 K/uL (0-0.3); HEMATOCRIT 32.4 % (38.0-50.0); IMMATURE GRANULOCYTE (%) 0.9 % (0.0-0.7); IMMATURE GRANULOCYTE COUNT 0.1 K/uL; LYMPHOCYTE COUNT 1.4 K/uL (1.0-2.8); MCH 30.7 PG (29.0-34.0); MCHC 34.6 G/DL (30.0-36.0); MCV 88.8 FL (86-99); MEAN PLAT.VOLUME 11.4 uM^3 (9.0-12.4); MONOCYTE (%) 11.4 % (3-12); MONOCYTE COUNT 0.8 K/uL (0-0.8); PLATELET COUNT 131 K/uL (156-360); RBC DIS.WIDTH-CV 13.5 % (11.8-14.6); RBC DIS.WIDTH-SD 44.4 % (39-53); RED BLOOD COUNT 3.65 M/uL (4.00-5.50); WHITE BLOOD COUNT 7.4 K/uL (4.1-10.2)
[2017-05-16 07:22] LABS: Estimated Average Glucose 111 mg/dL (70-123); HEMOGLOBIN A1c (GLYCOHEMOGLOB) 5.5 % HGB (Below 5.7)
[2017-05-16 07:37] VITALS: BP 144/88
[2017-05-16 08:21] LABS: ANION GAP 12 MEQ/L (2-14); CHLORIDE 107 MEQ/L (99-109); GFR ESTIMATE (CALCULATED) > 59 mL/min/; GLUCOSE 87 mg/dL (70-99); POTASSIUM 3.1 MEQ/L (3.7-5.4); SAMPLE HEMOLYSIS CHECK 0; SAMPLE ICTERIC CHECK 0; SAMPLE LIPEMIA CHECK 0; SODIUM 139 MEQ/L (136-147); UREA NITROGEN (BUN) 18 mg/dL (9-23)
[2017-05-16 08:22] LABS: MAGNESIUM 1.4 mg/dl (1.3-2.7)
[2017-05-16 12:19] VITALS: BP 158/76
[2017-05-16 16:02] VITALS: BP 151/89
[2017-05-16 18:47] VITALS: BP 109/57
[2017-05-16 23:49] VITALS: BP 127/72
[2017-05-17 05:49] LABS: EOSINOPHIL (%) 0.9 % (0-5); EOSINOPHIL COUNT 0.1 K/uL (0-0.3); IMMATURE GRANULOCYTE (%) 0.7 % (0.0-0.7); IMMATURE GRANULOCYTE COUNT 0.1 K/uL; INSTRUMENT ABS NEUTROPHIL CT 5.5 K/uL; LYMPHOCYTE COUNT 1.6 K/uL (1.0-2.8); MCH 30.2 PG (29.0-34.0); MCHC 33.2 G/DL (30.0-36.0); MCV 90.9 FL (86-99); MEAN PLAT.VOLUME 12.3 uM^3 (9.0-12.4); MONOCYTE (%) 11.7 % (3-12); NEUTROPHIL (%) 66.8 % (45-76); NEUTROPHIL COUNT 5.5 K/uL (1.8-6.4); PLATELET COUNT 149 K/uL (156-360); RBC DIS.WIDTH-CV 13.8 % (11.8-14.6); RBC DIS.WIDTH-SD 45.7 % (39-53); RED BLOOD COUNT 3.74 M/uL (4.00-5.50); WHITE BLOOD COUNT 8.2 K/uL (4.1-10.2)
[2017-05-17 06:14] LABS: ANION GAP 10 MEQ/L (2-14); CHLORIDE 107 MEQ/L (99-109); GFR ESTIMATE (CALCULATED) > 59 mL/min/; GLUCOSE 96 mg/dL (70-99); MAGNESIUM 1.4 mg/dl (1.3-2.7); POTASSIUM 3.5 MEQ/L (3.7-5.4); SAMPLE HEMOLYSIS CHECK 0; SAMPLE ICTERIC CHECK 0; SAMPLE LIPEMIA CHECK 0; SODIUM 138 MEQ/L (136-147); UREA NITROGEN (BUN) 17 mg/dL (9-23)
[2017-05-17 07:31] VITALS: BP 115/76
[2017-05-17 15:08] VITALS: BP 138/71
[2017-05-18 00:11] VITALS: BP 115/56
[2017-05-18 05:37] LABS: EOSINOPHIL (%) 0.9 % (0-5); EOSINOPHIL COUNT 0.1 K/uL (0-0.3); HEMATOCRIT 30.7 % (38.0-50.0); IMMATURE GRANULOCYTE (%) 0.7 % (0.0-0.7); IMMATURE GRANULOCYTE COUNT 0.1 K/uL; INSTRUMENT ABS NEUTROPHIL CT 6.2 K/uL; LYMPHOCYTE COUNT 1.8 K/uL (1.0-2.8); MCH 31.9 PG (29.0-34.0); MCHC 35.2 G/DL (30.0-36.0); MCV 90.6 FL (86-99); MEAN PLAT.VOLUME 12.7 uM^3 (9.0-12.4); MONOCYTE (%) 10.7 % (3-12); NEUTROPHIL COUNT 6.2 K/uL (1.8-6.4); PLATELET COUNT 169 K/uL (156-360); RBC DIS.WIDTH-SD 45.9 % (39-53); RED BLOOD COUNT 3.39 M/uL (4.00-5.50); WHITE BLOOD COUNT 9.1 K/uL (4.1-10.2)
[2017-05-18 06:28] LABS: ANION GAP 13 MEQ/L (2-14); CHLORIDE 108 MEQ/L (99-109); GFR ESTIMATE (CALCULATED) > 59 mL/min/; GLUCOSE 93 mg/dL (70-99); POTASSIUM 3.6 MEQ/L (3.7-5.4); SAMPLE HEMOLYSIS CHECK 0; SAMPLE ICTERIC CHECK 0; SAMPLE LIPEMIA CHECK 0; SODIUM 141 MEQ/L (136-147); UREA NITROGEN (BUN) 15 mg/dL (9-23)
[2017-05-18 07:22] VITALS: BP 145/79
[2017-05-18 14:18] VITALS: BP 146/85
[2017-05-19 00:09] VITALS: BP 112/71
[2017-05-19 06:17] LABS: EOSINOPHIL (%) 0.7 % (0-5); EOSINOPHIL COUNT 0.1 K/uL (0-0.3); HEMATOCRIT 32.9 % (38.0-50.0); IMMATURE GRANULOCYTE (%) 0.4 % (0.0-0.7); INSTRUMENT ABS NEUTROPHIL CT 6.9 K/uL; MCH 32.2 PG (29.0-34.0); MCHC 35.3 G/DL (30.0-36.0); MCV 91.4 FL (86-99); MEAN PLAT.VOLUME 12.4 uM^3 (9.0-12.4); MONOCYTE (%) 12.2 % (3-12); MONOCYTE COUNT 1.3 K/uL (0-0.8); NEUTROPHIL (%) 67.3 % (45-76); NEUTROPHIL COUNT 6.9 K/uL (1.8-6.4); PLATELET COUNT 184 K/uL (156-360); RBC DIS.WIDTH-CV 13.8 % (11.8-14.6); RBC DIS.WIDTH-SD 46.5 % (39-53); WHITE BLOOD COUNT 10.3 K/uL (4.1-10.2)
[2017-05-19 06:42] LABS: ANION GAP 10 MEQ/L (2-14); CHLORIDE 105 MEQ/L (99-109); GFR ESTIMATE (CALCULATED) > 59 mL/min/; GLUCOSE 93 mg/dL (70-99); SAMPLE HEMOLYSIS CHECK 0; SAMPLE ICTERIC CHECK 0; SAMPLE LIPEMIA CHECK 0; SODIUM 138 MEQ/L (136-147); UREA NITROGEN (BUN) 14 mg/dL (9-23)
[2017-05-19 07:25] VITALS: BP 136/66
[2017-05-19 11:18] VITALS: BP 129/61
[2017-05-19] MEDS ORDERED: LOPRESSOR25 MG PO (15:02)
[2017-05-19] MEDS ORDERED: ASPIR-LOW81 MG PO (15:03)
[2017-05-19] MEDS ORDERED: DUONEB 2.5-0.5 M3 ML AEROSOL (15:04)
[2017-05-19] MEDS ORDERED: NICOTINE PATCH1 EAC2 TD (15:04)
[2017-05-19 15:15] VITALS: BP 133/76
== END 2017-05-19 18:30 | disposition short-term general hospital (02) | DRG 917 ==
LOC: EME → EDBD 15:05 → EDOF 18:21 → 5SOUTH 18:21 → 4WEST 18:21 → 4EAST 05-15 10:14 → 5SOUTH 05-16 22:46
PROVIDERS: Emergency Medicine; Internal Medicine; Internal Medicine Nephrology; Nurse Practitioner Adult Health; Obstetrics & Gynecology; Physician Assistant Medical
PROC: 5A12012 Performance of Cardiac Output, Single, Manual (ICD-10-PCS; principal; 2017-05-07)
PROC: 5A1955Z Respiratory Ventilation, Greater than 96 Consecutive Hours (ICD-10-PCS; principal; 2017-05-07)
PROC: 06HM33Z Insertion of Infusion Device into Right Femoral Vein, Percutaneous Approach (ICD-10-PCS; principal; 2017-05-07)
PROC: 02HV33Z Insertion of Infusion Device into Superior Vena Cava, Percutaneous Approach (ICD-10-PCS; 2017-05-08)
PROC: 05H433Z Insertion of Infusion Device into Left Innominate Vein, Percutaneous Approach (ICD-10-PCS; 2017-05-08)
PROC: 5A1D00Z (ICD-10-PCS; 2017-05-08)
DX: T40.601A Poisoning by unspecified narcotics, accidental (unintentional), initial encounter (principal); I61.9 Nontraumatic intracerebral hemorrhage, unspecified; I63.412 Cerebral infarction due to embolism of left middle cerebral artery; I46.8 Cardiac arrest due to other underlying condition; I21.4 Non-ST elevation (NSTEMI) myocardial infarction; I47.2 Ventricular tachycardia; A41.9 Sepsis, unspecified organism; J96.02 Acute respiratory failure with hypercapnia; N17.0 Acute kidney failure with tubular necrosis; T79.0XXA Air embolism (traumatic), initial encounter; R57.9 Shock, unspecified; G93.40 Encephalopathy, unspecified; M62.82 Rhabdomyolysis; G81.91 Hemiplegia, unspecified affecting right dominant side; R47.01 Aphasia; E83.51 Hypocalcemia; E87.4 Mixed disorder of acid-base balance; E87.5 Hyperkalemia; I25.10 Atherosclerotic heart disease of native coronary artery without angina pectoris; I45.10 Unspecified right bundle-branch block; I10 Essential (primary) hypertension; F17.200 Nicotine dependence, unspecified, uncomplicated; E78.5 Hyperlipidemia, unspecified; F10.10 Alcohol abuse, uncomplicated; F11.10 Opioid abuse, uncomplicated; F41.9 Anxiety disorder, unspecified; R33.9 Retention of urine, unspecified; M54.9 Dorsalgia, unspecified; G89.29 Other chronic pain; R05 Cough; R00.1 Bradycardia, unspecified; R10.9 Unspecified abdominal pain; R34 Anuria and oliguria; R45.1 Restlessness and agitation; R73.9 Hyperglycemia, unspecified; R29.818 Other symptoms and signs involving the nervous system; E66.9 Obesity, unspecified; Z68.33 Body mass index [BMI] 33.0-33.9, adult; Z82.49 Family history of ischemic heart disease and other diseases of the circulatory system; Z95.1 Presence of aortocoronary bypass graft
CPT/HCPCS: 36600; 36620; 70450; 70544; 70549; 70551; 71010; 71250; 74176; 80047; 80048; 80048 91; 80053; 80061; 80069; 80076; 80202; 81003; 82150; 82272; 82330; 82550; 82550 91; 82553; 82803; 83036; 83605; 83690; 83735; 83880; 83935; 84100; 84300; 84443; 84484; 84999; 85025; 85027; 85610; 85730; 86900; 86901; 86920; 87040; 87070; 87077; 87086; 87106; 87177; 87186; 87205; 87493; 87641; 87801; 92507 GN; 92523 GN; 92610 GN; 93005; 93306; 94002; 94003; 94640; 94640 76; 94799; 97530 GO; 97530 GP; 99202; 99281; 99285; C1788; C9113; G0480; J0171; J0610; J1250; J1644; J1815; J2250; J2270; J2543; J2597; J2704; J2930; J3010; J3370; J3475; J7030; J7040; J7050; J7120; P9045

== ENCOUNTER 2017-06-13 11:37 | Emergency (ER) | payer OTHER ==
[~2017-06-13] VITALS: Ht 177.8 cm; Wt 95.6 kg
[~2017-06-13 11:37] MED LIST: AMLODIPINE BESYL5 MG PO; ASPIR-LOW81 MG PO; ATORVASTATIN CA80 MG PO; CLOPIDOGREL75 MG PO; DUONEB 2.5-0.5 M3 ML AEROSOL; FUROSEMIDE20 MG PO; GRALISE300 MG PO; LOPRESSOR25 MG PO; LOSARTAN POTAS100 MG PO; NICOTINE PATCH1 EAC2 TD; PERPHENAZINE4 MG PO; SERTRALINE HCL100 MG PO; TRAZODONE HCL50 MG PO
[2017-06-13 12:47] LABS: HEMATOCRIT 33.6 % (38.0-50.0); MCH 30.6 PG (29.0-34.0); MCHC 33.6 G/DL (30.0-36.0); MCV 91.1 FL (86-99); MEAN PLAT.VOLUME 11.2 uM^3 (9.0-12.4); PLATELET COUNT 217 K/uL (156-360); RBC DIS.WIDTH-CV 13.5 % (11.8-14.6); RBC DIS.WIDTH-SD 44.8 % (39-53); RED BLOOD COUNT 3.69 M/uL (4.00-5.50); WHITE BLOOD COUNT 10.1 K/uL (4.1-10.2)
[2017-06-13 12:55] LABS: CHLORIDE 107 mEq/L (99-109); POTASSIUM 4.6 mEq/L (3.7-5.4); SODIUM 140 mEq/L (136-147)
[2017-06-13 12:57] LABS: GLUCOSE 89 mg/dL (70-99)
[2017-06-13 12:58] LABS: ANION GAP 9 MEQ/L (2-14)
[2017-06-13 13:01] LABS: GFR ESTIMATE (CALCULATED) > 59 mL/min/
[2017-06-13 13:02] LABS: UREA NITROGEN (BUN) 16 mg/dL (9-23)
[2017-06-13 13:25] LABS: TROP-I INTERPRETATION NEGATIVE; TROPONIN-I < 0.01 ng/mL (0.0-0.30)
[2017-06-13 17:46] VITALS: BP 132/99
== END 2017-06-13 18:07 ==
LOC: EME 11:37
PROVIDERS: Emergency Medicine
DX: R55 Syncope and collapse (principal); I25.2 Old myocardial infarction; Z86.73 Personal history of transient ischemic attack (TIA), and cerebral infarction without residual deficits; Z95.1 Presence of aortocoronary bypass graft; Z87.891 Personal history of nicotine dependence
CPT/HCPCS: 71020; 80048; 81003; 84484; 85027; 93005; 99281; 99285

== ENCOUNTER 2017-07-12 11:06 | Observation (INO) | payer OTHER ==
[~2017-07-12] VITALS: Ht 182.9 cm; Wt 98.0 kg
[~2017-07-12 11:06] MED LIST changes: +GABAPENTIN600 MG PO; -GRALISE300 MG PO; -LOSARTAN POTAS100 MG PO; +LOSARTAN POTASS25 MG PO; +PERPHENAZINE2 MG PO; -PERPHENAZINE4 MG PO
[2017-07-12 11:52] LABS: MCH 30.2 PG (29.0-34.0); MCHC 33.8 G/DL (30.0-36.0); MCV 89.4 FL (86-99); MEAN PLAT.VOLUME 11.4 uM^3 (9.0-12.4); PLATELET COUNT 187 K/uL (156-360); RBC DIS.WIDTH-CV 13.3 % (11.8-14.6); RBC DIS.WIDTH-SD 43.9 % (39-53); RED BLOOD COUNT 3.58 M/uL (4.00-5.50); WHITE BLOOD COUNT 10.6 K/uL (4.1-10.2)
[2017-07-12 12:04] LABS: CHLORIDE 101 mEq/L (99-109); POTASSIUM 4.7 mEq/L (3.7-5.4); SODIUM 133 mEq/L (136-147)
[2017-07-12 12:06] LABS: GLUCOSE 111 mg/dL (70-99)
[2017-07-12 12:07] LABS: ANION GAP 13 MEQ/L (2-14)
[2017-07-12 12:10] LABS: GFR ESTIMATE (CALCULATED) > 59 mL/min/; UREA NITROGEN (BUN) 13 mg/dL (9-23)
[2017-07-12 12:14] LABS: TROP-I INTERPRETATION NEGATIVE; TROPONIN-I < 0.01 ng/mL (0.0-0.30)
[2017-07-12] MEDS ORDERED: ELAVIL25 MG PO (15:36)
[2017-07-12] MEDS ORDERED: RANITIDINE HCL150 M1 PO (15:52)
[2017-07-12] MEDS ORDERED: SPIRIVA1 INHALATI IH (15:53)
[2017-07-12] MEDS ORDERED: ALBUTEROL2.5 MG/3 M IH (15:56)
[2017-07-12] MEDS ORDERED: DULCOLAX10 MG PR (15:56)
[2017-07-12] MEDS ORDERED: FLEET ENEMA-AD118 ML PR (15:58)
[2017-07-12] MEDS ORDERED: MILK OF MAGN PO (15:59)
[2017-07-12] MEDS ORDERED: ROXICODONE5 MG PO (16:00)
[2017-07-12] MEDS ORDERED: TRAZODONE HCL50 MG PO (16:01)
[2017-07-12] MEDS ORDERED: TYLENOL REGULA325 MG PO (16:02)
[2017-07-12 20:14] LABS: TROP-I INTERPRETATION NEGATIVE; TROPONIN-I 0.01 ng/mL (0.0-0.30)
[2017-07-12 20:52] VITALS: BP 113/67
[2017-07-12 23:55] VITALS: BP 99/61
[2017-07-13 01:10] LABS: TROP-I INTERPRETATION NEGATIVE; TROPONIN-I < 0.01 ng/mL (0.0-0.30)
[2017-07-13 04:33] VITALS: BP 90/60
[2017-07-13 04:40] VITALS: BP 89/59
[2017-07-13 07:00] LABS: ANION GAP 10 MEQ/L (2-14); CHLORIDE 102 MEQ/L (99-109); GFR ESTIMATE (CALCULATED) > 59 mL/min/; GLUCOSE 92 mg/dL (70-99); POTASSIUM 4.3 MEQ/L (3.7-5.4); SAMPLE HEMOLYSIS CHECK 0; SAMPLE ICTERIC CHECK 0; SAMPLE LIPEMIA CHECK 0; SODIUM 135 MEQ/L (136-147); UREA NITROGEN (BUN) 20 mg/dL (9-23)
[2017-07-13 07:26] VITALS: BP 94/61
[2017-07-13 08:12] LABS: EOSINOPHIL (%) 1.4 % (0-5); EOSINOPHIL COUNT 0.1 K/uL (0-0.3); HEMATOCRIT 30.3 % (38.0-50.0); IMMATURE GRANULOCYTE (%) 0.4 % (0.0-0.7); INSTRUMENT ABS NEUTROPHIL CT 3.9 K/uL; MCH 30.5 PG (29.0-34.0); MCHC 33.3 G/DL (30.0-36.0); MCV 91.5 FL (86-99); MEAN PLAT.VOLUME 12.1 uM^3 (9.0-12.4); MONOCYTE (%) 16.4 % (3-12); MONOCYTE COUNT 1.2 K/uL (0-0.8); NEUTROPHIL (%) 53.7 % (45-76); NEUTROPHIL COUNT 3.9 K/uL (1.8-6.4); PLATELET COUNT 165 K/uL (156-360); RBC DIS.WIDTH-CV 13.6 % (11.8-14.6); RBC DIS.WIDTH-SD 46.3 % (39-53); RED BLOOD COUNT 3.31 M/uL (4.00-5.50); WHITE BLOOD COUNT 7.3 K/uL (4.1-10.2)
[2017-07-13 11:36] LABS: ADD MIUA? NO; BILIRUBIN NEGATIVE; BLOOD NEGATIVE; COLOR YELLOW ((YELLOW)); GLUCOSE (STRIP) NEGATIVE; KETONES NEGATIVE; LEUKOCYTES NEGATIVE; NITRITE NEGATIVE; PROTEIN (STRIP) NEGATIVE; SPECIFIC GRAVITY 1.031 (1.000-1.030); UCUL ADDED? NO; UROBILINOGEN 0.2 MG/DL (0.2-1.0)
[2017-07-13 11:48] VITALS: BP 110/71
[2017-07-13] MEDS ORDERED: LOPRESSOR25 MG PO (12:38)
== END 2017-07-13 16:27 ==
LOC: EME 11:06 → 5WEST 14:10 → EDOF 14:10 → ENRESERV 14:25 → 5WEST 20:34
PROVIDERS: Internal Medicine; Physician Assistant Medical
DX: R07.9 Chest pain, unspecified (principal); I25.10 Atherosclerotic heart disease of native coronary artery without angina pectoris; Z95.1 Presence of aortocoronary bypass graft; I25.2 Old myocardial infarction; I69.320 Aphasia following cerebral infarction; D64.9 Anemia, unspecified; E66.9 Obesity, unspecified; F17.210 Nicotine dependence, cigarettes, uncomplicated; Z82.49 Family history of ischemic heart disease and other diseases of the circulatory system; Z88.8 Allergy status to other drugs, medicaments and biological substances
CPT/HCPCS: 71020; 71275; 80048; 81003; 83605; 83880; 84484; 85025; 85027; 93005; 99281; 99285; G0378; J1650; J2270; J7030; Q0175

== ENCOUNTER 2017-09-26 13:46 | Inpatient (IN) | payer OTHER ==
[~2017-09-26] VITALS: Ht 177.8 cm; Wt 94.4 kg
[~2017-09-26 13:46] MED LIST changes: +ALBUTEROL2.5 MG/3 M IH; +DULCOLAX10 MG PR; +ELAVIL50 MG PO; +FLEET ENEMA-AD118 ML PR; -GABAPENTIN600 MG PO; +GABAPENTIN800 MG PO; +MILK OF MAGN PO; +OXYCODONE HCL10 MG PO; +RANITIDINE HCL150 M1 PO; +SPIRIVA1 INHALATI IH; +TYLENOL REGULA325 MG PO
[2017-09-26 14:46] LABS: EOSINOPHIL (%) 0.3 % (0-5); HEMATOCRIT 27.5 % (38.0-50.0); IMMATURE GRANULOCYTE (%) 0.4 % (0.0-0.7); IMMATURE GRANULOCYTE COUNT 0.1 K/uL; INSTRUMENT ABS NEUTROPHIL CT 11.8 K/uL; LYMPHOCYTE COUNT 1.2 K/uL (1.0-2.8); MCHC 32.4 G/DL (30.0-36.0); MEAN PLAT.VOLUME 9.8 uM^3 (9.0-12.4); MONOCYTE (%) 6.7 % (3-12); MONOCYTE COUNT 0.9 K/uL (0-0.8); NEUTROPHIL (%) 83.9 % (45-76); NEUTROPHIL COUNT 11.8 K/uL (1.8-6.4); PLATELET COUNT 243 K/uL (156-360); RBC DIS.WIDTH-CV 15.8 % (11.8-14.6); RBC DIS.WIDTH-SD 48.1 % (39-53)
[2017-09-26 14:48] LABS: MCV 83.3 FL (86-99)
[2017-09-26 14:55] LABS: CHLORIDE 103 mEq/L (99-109); SODIUM 137 mEq/L (136-147)
[2017-09-26 14:56] LABS: MAGNESIUM 1.4 mg/dL (1.3-2.7)
[2017-09-26 14:58] LABS: GLUCOSE 95 mg/dL (70-99)
[2017-09-26 14:59] LABS: ANION GAP 10 MEQ/L (2-14)
[2017-09-26 15:00] LABS: TOTAL BILIRUBIN 0.7 mg/dL (0.0-1.0)
[2017-09-26 15:01] LABS: ALKALINE PHOSPHATASE 151 IU/L (3-129); GFR ESTIMATE (CALCULATED) > 59 mL/min/
[2017-09-26 15:02] LABS: UREA NITROGEN (BUN) 17 mg/dL (9-23)
[2017-09-26] MEDS ORDERED: DURAGESIC25 MCG TD (16:57)
[2017-09-26] MEDS ORDERED: NIZORAL SHAMPO120 ML TP (16:58)
[2017-09-26] MEDS ORDERED: SENNA PLUS TAB1 EACH PO (17:00)
[2017-09-26] MEDS ORDERED: THIAMINE HCL100 MG PO (17:01)
[2017-09-26] MEDS ORDERED: ADVAIR HFA120 INHAL1 IH (17:01)
[2017-09-26] MEDS ORDERED: LOPRESSOR25 MG PO (17:04)
[2017-09-26 23:22] LABS: ADD MIUA? YES; BILIRUBIN NEGATIVE; BLOOD MODERATE; COLOR YELLOW ((YELLOW)); GLUCOSE (STRIP) NEGATIVE; KETONES NEGATIVE; LEUKOCYTES NEGATIVE; NITRITE NEGATIVE; PROTEIN (STRIP) NEGATIVE; SPECIFIC GRAVITY 1.017 (1.000-1.030)
[2017-09-26 23:27] LABS: BACTERIA RARE /HPF; EPITHELIAL CELLS NONE SEEN /HPF; HYALINE CASTS 0-5 /LPF; MUCUS TRACE /LPF; RED BLOOD CELLS TNTC /HPF (0-5); UCUL ADDED? YES; WHITE BLOOD CELLS 0-5 /HPF (0-5)
[2017-09-27 00:19] VITALS: BP 101/76
[2017-09-27 05:52] LABS: HEMATOCRIT 25.6 % (38.0-50.0); MCH 26.8 PG (29.0-34.0); MCHC 31.6 G/DL (30.0-36.0); MCV 84.8 FL (86-99); MEAN PLAT.VOLUME 10.4 uM^3 (9.0-12.4); PLATELET COUNT 209 K/uL (156-360); RBC DIS.WIDTH-CV 15.9 % (11.8-14.6); RBC DIS.WIDTH-SD 49.2 % (39-53); RED BLOOD COUNT 3.02 M/uL (4.00-5.50); WHITE BLOOD COUNT 9.2 K/uL (4.1-10.2)
[2017-09-27 08:05] VITALS: BP 104/71
[2017-09-27 16:40] VITALS: BP 151/74
[2017-09-27 23:18] VITALS: BP 136/81
[2017-09-28 04:17] VITALS: BP 120/72
[2017-09-28 07:51] VITALS: BP 127/73
[2017-09-28 09:39] LABS: HEMATOCRIT 24.9 % (38.0-50.0); MCH 26.8 PG (29.0-34.0); MCHC 31.3 G/DL (30.0-36.0); MCV 85.6 FL (86-99); MEAN PLAT.VOLUME 10.5 uM^3 (9.0-12.4); PLATELET COUNT 199 K/uL (156-360); RBC DIS.WIDTH-CV 15.9 % (11.8-14.6); RBC DIS.WIDTH-SD 49.2 % (39-53); RED BLOOD COUNT 2.91 M/uL (4.00-5.50); WHITE BLOOD COUNT 5.3 K/uL (4.1-10.2)
[2017-09-28 14:52] VITALS: BP 168/89
[2017-09-29 00:14] VITALS: BP 125/65
[2017-09-29 06:33] LABS: ALKALINE PHOSPHATASE 132 IU/L (3-129); ANION GAP 9 MEQ/L (2-14); CHLORIDE 108 MEQ/L (99-109); GFR ESTIMATE (CALCULATED) > 59 mL/min/; GLUCOSE 90 mg/dL (70-99); POTASSIUM 3.7 MEQ/L (3.7-5.4); SAMPLE HEMOLYSIS CHECK 0; SAMPLE ICTERIC CHECK 0; SAMPLE LIPEMIA CHECK 0; SODIUM 141 MEQ/L (136-147); TOTAL BILIRUBIN 0.4 MG/DL (0.0-1.0); UREA NITROGEN (BUN) 6 mg/dL (9-23)
[2017-09-29 08:02] VITALS: BP 122/75
[2017-09-29 11:08] LABS: HEMATOCRIT 23.9 % (38.0-50.0); MCHC 32.2 G/DL (30.0-36.0); MCV 83.9 FL (86-99); MEAN PLAT.VOLUME 10.8 uM^3 (9.0-12.4); PLATELET COUNT 229 K/uL (156-360); RBC DIS.WIDTH-CV 15.9 % (11.8-14.6); RBC DIS.WIDTH-SD 49.2 % (39-53); RED BLOOD COUNT 2.85 M/uL (4.00-5.50); WHITE BLOOD COUNT 4.9 K/uL (4.1-10.2)
[2017-09-29 15:44] VITALS: BP 156/87
[2017-09-29 23:46] VITALS: BP 139/71
[2017-09-30 05:32] LABS: HEMATOCRIT 28.1 % (38.0-50.0); MCH 26.6 PG (29.0-34.0); MCHC 31.7 G/DL (30.0-36.0); MCV 83.9 FL (86-99); MEAN PLAT.VOLUME 10.3 uM^3 (9.0-12.4); PLATELET COUNT 237 K/uL (156-360); RBC DIS.WIDTH-SD 49.2 % (39-53); RED BLOOD COUNT 3.35 M/uL (4.00-5.50); WHITE BLOOD COUNT 5.9 K/uL (4.1-10.2)
[2017-09-30 07:10] VITALS: BP 155/83
[2017-09-30 15:24] VITALS: BP 142/87
[2017-09-30 23:37] VITALS: BP 146/84
[2017-10-01 06:24] LABS: MCHC 31.8 G/DL (30.0-36.0); MCV 81.9 FL (86-99); MEAN PLAT.VOLUME 9.9 uM^3 (9.0-12.4); PLATELET COUNT 264 K/uL (156-360); RBC DIS.WIDTH-CV 15.9 % (11.8-14.6); RBC DIS.WIDTH-SD 47.8 % (39-53); RED BLOOD COUNT 3.42 M/uL (4.00-5.50); WHITE BLOOD COUNT 7.4 K/uL (4.1-10.2)
[2017-10-01 06:43] LABS: ALKALINE PHOSPHATASE 145 IU/L (3-129); ANION GAP 13 MEQ/L (2-14); CHLORIDE 104 MEQ/L (99-109); GFR ESTIMATE (CALCULATED) > 59 mL/min/; GLUCOSE 100 mg/dL (70-99); POTASSIUM 3.7 MEQ/L (3.7-5.4); SAMPLE HEMOLYSIS CHECK 0; SAMPLE ICTERIC CHECK 0; SAMPLE LIPEMIA CHECK 0; SODIUM 138 MEQ/L (136-147); UREA NITROGEN (BUN) 5 mg/dL (9-23)
[2017-10-01 06:44] LABS: TOTAL BILIRUBIN 0.6 MG/DL (0.0-1.0)
[2017-10-01 07:36] VITALS: BP 158/103
[2017-10-01 09:30] VITALS: BP 148/90
== END 2017-10-01 14:50 | DRG 872 ==
LOC: EME → EDBD 13:46 → EME 13:46 → EDOF 19:25 → 5EAST 19:25 → ENRESERV 19:38 → 5EAST 23:58
PROVIDERS: Emergency Medicine; Family Medicine; Internal Medicine
DX: A41.9 Sepsis, unspecified organism (principal); D62 Acute posthemorrhagic anemia; N35.9 Urethral stricture, unspecified; N36.5 Urethral false passage; R34 Anuria and oliguria; R33.9 Retention of urine, unspecified; R31.0 Gross hematuria; N32.89 Other specified disorders of bladder; I69.320 Aphasia following cerebral infarction; I69.351 Hemiplegia and hemiparesis following cerebral infarction affecting right dominant side; R09.02 Hypoxemia; J44.9 Chronic obstructive pulmonary disease, unspecified; I10 Essential (primary) hypertension; I25.10 Atherosclerotic heart disease of native coronary artery without angina pectoris; E78.5 Hyperlipidemia, unspecified; R00.0 Tachycardia, unspecified; F41.8 Other specified anxiety disorders; I25.2 Old myocardial infarction; Z82.49 Family history of ischemic heart disease and other diseases of the circulatory system; Z87.891 Personal history of nicotine dependence; Z95.1 Presence of aortocoronary bypass graft
CPT/HCPCS: 71010; 71020; 76770; 80053; 80202; 81003; 83605; 83735; 85025; 85027; 87040; 87086; 93005; 94640; 94640 76; 94760; 94799; 99281; 99285; C1753; C1758; C1769; J0696; J1650; J2543; J3370; J7030; J7050; Q0175

== ENCOUNTER 2017-10-07 09:50 | Inpatient (IN) | payer OTHER ==
[~2017-10-07] VITALS: Ht 185.4 cm; Wt 94.0 kg
[~2017-10-07 09:50] MED LIST changes: +ADVAIR HFA120 INHAL1 IH; +DURAGESIC25 MCG TD; +NIZORAL SHAMPO120 ML TP; +SENNA PLUS TAB1 EACH PO; +THIAMINE HCL100 MG PO
[2017-10-07 10:32] LABS: BASOPHIL COUNT 0.1 K/uL (0-0.1); EOSINOPHIL (%) 0.4 % (0-5); EOSINOPHIL COUNT 0.1 K/uL (0-0.3); IMMATURE GRANULOCYTE (%) 0.5 % (0.0-0.7); IMMATURE GRANULOCYTE COUNT 0.1 K/uL; INSTRUMENT ABS NEUTROPHIL CT 8.7 K/uL; LYMPHOCYTE COUNT 3.2 K/uL (1.0-2.8); MCH 25.9 PG (29.0-34.0); MCHC 31.3 G/DL (30.0-36.0); MCV 82.9 FL (86-99); MEAN PLAT.VOLUME 10.9 uM^3 (9.0-12.4); MONOCYTE COUNT 1.2 K/uL (0-0.8); NEUTROPHIL (%) 65.6 % (45-76); NEUTROPHIL COUNT 8.7 K/uL (1.8-6.4); RBC DIS.WIDTH-CV 16.3 % (11.8-14.6); RBC DIS.WIDTH-SD 49.7 % (39-53); RED BLOOD COUNT 3.74 M/uL (4.00-5.50); WHITE BLOOD COUNT 13.2 K/uL (4.1-10.2)
[2017-10-07 10:35] LABS: PLATELET COUNT 435 K/uL (156-360)
[2017-10-07 10:44] LABS: CHLORIDE 102 mEq/L (99-109); SODIUM 138 mEq/L (136-147)
[2017-10-07 10:46] LABS: GLUCOSE 130 mg/dL (70-99)
[2017-10-07 10:48] LABS: ANION GAP 13 MEQ/L (2-14); POTASSIUM 4.9 mEq/L (3.7-5.4); TOTAL BILIRUBIN 0.5 mg/dL (0.0-1.0)
[2017-10-07 10:50] LABS: ALKALINE PHOSPHATASE 167 IU/L (3-129); GFR ESTIMATE (CALCULATED) > 59 mL/min/ (58.99-99999)
[2017-10-07 10:51] LABS: UREA NITROGEN (BUN) 19 mg/dL (9-23)
[2017-10-07 10:53] LABS: TROP-I INTERPRETATION POSITIVE
[2017-10-07 10:56] LABS: TROPONIN-I 0.67 ng/mL (0.0-0.30)
[2017-10-07 12:20] LABS: ADD MIUA? YES; BILIRUBIN NEGATIVE; BLOOD NEGATIVE; COLOR YELLOW ((YELLOW)); GLUCOSE (STRIP) NEGATIVE; KETONES NEGATIVE; LEUKOCYTES TRACE; NITRITE NEGATIVE; PROTEIN (STRIP) NEGATIVE; SPECIFIC GRAVITY 1.019 (1.000-1.030)
[2017-10-07 12:24] LABS: BACTERIA RARE /HPF; CALCIUM OXALATE CRYSTALS 1+ /HPF; EPITHELIAL CELLS RARE /HPF; HYALINE CASTS 30-40 /LPF; MUCUS TRACE /LPF; UCUL ADDED? YES
[2017-10-07] MEDS ORDERED: OXYCODONE HCL15 MG PO (14:45)
[2017-10-07 18:46] LABS: TROP-I INTERPRETATION INDETERMINATE; TROPONIN-I 0.46 ng/mL (0.0-0.30)
[2017-10-07 20:20] VITALS: BP 109/63
[2017-10-07 20:45] VITALS: BP 109/61
[2017-10-07 22:16] LABS: METH RESISTANT S AUREUS PCR NEGATIVE (NEGATIVE)
[2017-10-07 22:17] LABS: PROBE CHECK PASS; SPECIMEN PROCESSING CONTROL PASS
[2017-10-07 23:52] VITALS: BP 103/63
[2017-10-08 02:19] LABS: C DIFF TOXIN POSITIVE (NEGATIVE)
[2017-10-08 02:30] LABS: PROBE CHECK PASS
[2017-10-08 03:00] LABS: HEMATOCRIT 24.4 % (38.0-50.0); MCH 25.8 PG (29.0-34.0); MCHC 30.7 G/DL (30.0-36.0); MCV 83.8 FL (86-99); RBC DIS.WIDTH-CV 16.3 % (11.8-14.6); RBC DIS.WIDTH-SD 50.3 % (39-53); RED BLOOD COUNT 2.91 M/uL (4.00-5.50); WHITE BLOOD COUNT 7.5 K/uL (4.1-10.2)
[2017-10-08 03:18] LABS: TROP-I INTERPRETATION INDETERMINATE; TROPONIN-I 0.32 ng/mL (0.0-0.30)
[2017-10-08 03:20] LABS: SODIUM 139 MEQ/L (136-147)
[2017-10-08 03:21] LABS: CHLORIDE 112 MEQ/L (99-109); POTASSIUM 3.6 MEQ/L (3.7-5.4)
[2017-10-08 03:22] LABS: GLUCOSE 101 mg/dL (70-99)
[2017-10-08 03:24] LABS: GFR ESTIMATE (CALCULATED) > 59 mL/min/ (58.99-99999); UREA NITROGEN (BUN) 14 mg/dL (9-23)
[2017-10-08 03:25] LABS: ANION GAP 5 MEQ/L (2-14)
[2017-10-08 03:32] LABS: EOSINOPHIL (%) 1.5 % (0-5); EOSINOPHIL COUNT 0.1 K/uL (0-0.3); IMMATURE GRANULOCYTE (%) 0.4 % (0.0-0.7); INSTRUMENT ABS NEUTROPHIL CT 5.2 K/uL; LYMPHOCYTE COUNT 1.5 K/uL (1.0-2.8); MEAN PLAT.VOLUME 10.8 uM^3 (9.0-12.4); MONOCYTE (%) 8.2 % (3-12); MONOCYTE COUNT 0.6 K/uL (0-0.8); NEUTROPHIL (%) 69.5 % (45-76); NEUTROPHIL COUNT 5.2 K/uL (1.8-6.4); PLAT.SUFFICIENCY ADEQUATE; PLATELET COUNT 286 K/uL (156-360)
[2017-10-08 05:05] VITALS: BP 113/74
[2017-10-08 08:50] VITALS: BP 125/83
[2017-10-08 10:01] LABS: TROP-I INTERPRETATION NEGATIVE; TROPONIN-I 0.28 ng/mL (0.0-0.30)
[2017-10-08 12:34] VITALS: BP 152/83
[2017-10-08 16:15] VITALS: BP 125/74
[2017-10-08 21:43] VITALS: BP 126/73
[2017-10-09] VITALS (7 sets, daily range): BP systolic 120–140; BP diastolic 65–82
[2017-10-09 06:14] LABS: EOSINOPHIL (%) 2.2 % (0-5); EOSINOPHIL COUNT 0.1 K/uL (0-0.3); HEMATOCRIT 26.2 % (38.0-50.0); IMMATURE GRANULOCYTE (%) 0.5 % (0.0-0.7); INSTRUMENT ABS NEUTROPHIL CT 4.1 K/uL; LYMPHOCYTE COUNT 1.5 K/uL (1.0-2.8); MCH 26.3 PG (29.0-34.0); MCHC 29.8 G/DL (30.0-36.0); MEAN PLAT.VOLUME 10.7 uM^3 (9.0-12.4); MONOCYTE (%) 7.8 % (3-12); MONOCYTE COUNT 0.5 K/uL (0-0.8); NEUTROPHIL COUNT 4.1 K/uL (1.8-6.4); PLATELET COUNT 291 K/uL (156-360); RBC DIS.WIDTH-CV 16.2 % (11.8-14.6); RBC DIS.WIDTH-SD 52.2 % (39-53); RED BLOOD COUNT 2.97 M/uL (4.00-5.50); WHITE BLOOD COUNT 6.3 K/uL (4.1-10.2)
[2017-10-09 06:15] LABS: MCV 88.2 FL (86-99)
[2017-10-09 06:21] LABS: ANION GAP 10 MEQ/L (2-14); CHLORIDE 112 MEQ/L (99-109); GFR ESTIMATE (CALCULATED) > 59 mL/min/ (58.99-99999); GLUCOSE 85 mg/dL (70-99); POTASSIUM 3.8 MEQ/L (3.7-5.4); SAMPLE HEMOLYSIS CHECK 0; SAMPLE ICTERIC CHECK 0; SAMPLE LIPEMIA CHECK 0; SODIUM 142 MEQ/L (136-147); UREA NITROGEN (BUN) 6 mg/dL (9-23)
[2017-10-10 04:24] VITALS: BP 153/89
[2017-10-10 06:11] LABS: ANION GAP 10 MEQ/L (2-14); CHLORIDE 108 MEQ/L (99-109); GFR ESTIMATE (CALCULATED) > 59 mL/min/ (58.99-99999); GLUCOSE 84 mg/dL (70-99); POTASSIUM 3.5 MEQ/L (3.7-5.4); SAMPLE HEMOLYSIS CHECK 0; SAMPLE ICTERIC CHECK 0; SAMPLE LIPEMIA CHECK 0; SODIUM 140 MEQ/L (136-147); UREA NITROGEN (BUN) 4 mg/dL (9-23)
[2017-10-10 06:48] LABS: EOSINOPHIL (%) 1.2 % (0-5); EOSINOPHIL COUNT 0.1 K/uL (0-0.3); HEMATOCRIT 25.3 % (38.0-50.0); IMMATURE GRANULOCYTE (%) 0.3 % (0.0-0.7); INSTRUMENT ABS NEUTROPHIL CT 5.4 K/uL; LYMPHOCYTE COUNT 1.5 K/uL (1.0-2.8); MCH 25.6 PG (29.0-34.0); MCHC 31.2 G/DL (30.0-36.0); MEAN PLAT.VOLUME 10.7 uM^3 (9.0-12.4); MONOCYTE (%) 8.8 % (3-12); MONOCYTE COUNT 0.7 K/uL (0-0.8); NEUTROPHIL (%) 69.6 % (45-76); NEUTROPHIL COUNT 5.4 K/uL (1.8-6.4); PLAT.SUFFICIENCY ADEQUATE; PLATELET COUNT 332 K/uL (156-360); RBC DIS.WIDTH-CV 16.1 % (11.8-14.6); RBC DIS.WIDTH-SD 48.7 % (39-53); RED BLOOD COUNT 3.08 M/uL (4.00-5.50); WHITE BLOOD COUNT 7.8 K/uL (4.1-10.2)
[2017-10-10 06:55] LABS: MCV 82.1 FL (86-99)
[2017-10-10 07:13] VITALS: BP 162/92
[2017-10-10 11:39] VITALS: BP 177/98
[2017-10-10 15:43] VITALS: BP 158/98
[2017-10-10 18:57] VITALS: BP 126/71
[2017-10-11 03:23] VITALS: BP 145/84
[2017-10-11 04:57] LABS: CHLORIDE 111 mEq/L (99-109); POTASSIUM 3.6 mEq/L (3.7-5.4); SODIUM 142 mEq/L (136-147)
[2017-10-11 04:58] LABS: GLUCOSE 102 mg/dL (70-99)
[2017-10-11 04:59] LABS: EOSINOPHIL (%) 0.8 % (0-5); HEMATOCRIT 25.9 % (38.0-50.0); IMMATURE GRANULOCYTE (%) 0.8 % (0.0-0.7); INSTRUMENT ABS NEUTROPHIL CT 3.1 K/uL; LYMPHOCYTE COUNT 1.4 K/uL (1.0-2.8); MCH 25.7 PG (29.0-34.0); MCHC 31.3 G/DL (30.0-36.0); MCV 82.2 FL (86-99); MEAN PLAT.VOLUME 10.5 uM^3 (9.0-12.4); MONOCYTE (%) 13.3 % (3-12); MONOCYTE COUNT 0.7 K/uL (0-0.8); NEUTROPHIL (%) 58.4 % (45-76); NEUTROPHIL COUNT 3.1 K/uL (1.8-6.4); PLATELET COUNT 312 K/uL (156-360); RBC DIS.WIDTH-CV 16.4 % (11.8-14.6); RBC DIS.WIDTH-SD 49.2 % (39-53); RED BLOOD COUNT 3.15 M/uL (4.00-5.50); WHITE BLOOD COUNT 5.3 K/uL (4.1-10.2)
[2017-10-11 05:00] LABS: ANION GAP 8 MEQ/L (2-14)
[2017-10-11 05:02] LABS: GFR ESTIMATE (CALCULATED) > 59 mL/min/ (58.99-99999)
[2017-10-11 05:03] LABS: UREA NITROGEN (BUN) 3 mg/dL (9-23)
[2017-10-11 07:59] VITALS: BP 170/84
[2017-10-11 11:26] VITALS: BP 162/84
[2017-10-11 16:58] VITALS: BP 164/85
[2017-10-11 19:06] VITALS: BP 162/83
[2017-10-12] VITALS (7 sets, daily range): BP systolic 143–176; BP diastolic 79–97
[2017-10-12 05:31] LABS: EOSINOPHIL COUNT 0.1 K/uL (0-0.3); HEMATOCRIT 26.4 % (38.0-50.0); IMMATURE GRANULOCYTE (%) 0.6 % (0.0-0.7); INSTRUMENT ABS NEUTROPHIL CT 3.7 K/uL; LYMPHOCYTE COUNT 1.7 K/uL (1.0-2.8); MCH 25.1 PG (29.0-34.0); MCHC 30.3 G/DL (30.0-36.0); MCV 82.8 FL (86-99); MEAN PLAT.VOLUME 10.3 uM^3 (9.0-12.4); MONOCYTE COUNT 0.7 K/uL (0-0.8); NEUTROPHIL (%) 60.1 % (45-76); NEUTROPHIL COUNT 3.7 K/uL (1.8-6.4); PLATELET COUNT 310 K/uL (156-360); RBC DIS.WIDTH-CV 16.6 % (11.8-14.6); RED BLOOD COUNT 3.19 M/uL (4.00-5.50); WHITE BLOOD COUNT 6.2 K/uL (4.1-10.2)
[2017-10-12 05:55] LABS: ANION GAP 9 MEQ/L (2-14); CHLORIDE 109 MEQ/L (99-109); GFR ESTIMATE (CALCULATED) > 59 mL/min/ (58.99-99999); GLUCOSE 95 mg/dL (70-99); POTASSIUM 4.1 MEQ/L (3.7-5.4); SAMPLE HEMOLYSIS CHECK 0; SAMPLE ICTERIC CHECK 0; SAMPLE LIPEMIA CHECK 0; SODIUM 140 MEQ/L (136-147); UREA NITROGEN (BUN) 4 mg/dL (9-23)
[2017-10-12 16:34] LABS: TROP-I INTERPRETATION NEGATIVE; TROPONIN-I 0.02 ng/mL (0.0-0.30)
[2017-10-12 23:10] LABS: TROP-I INTERPRETATION NEGATIVE; TROPONIN-I 0.02 ng/mL (0.0-0.30)
[2017-10-13 05:00] VITALS: BP 166/88
[2017-10-13 07:54] LABS: TROP-I INTERPRETATION NEGATIVE; TROPONIN-I 0.01 ng/mL (0.0-0.30)
[2017-10-13 08:32] VITALS: BP 143/88
[2017-10-13 11:24] VITALS: BP 158/85
[2017-10-13] MEDS ORDERED: LOPRESSOR25 MG PO (14:48)
[2017-10-13] MEDS ORDERED: AMITRIPTYLINE H10 MG PO (14:50)
[2017-10-13] MEDS ORDERED: SERTRALINE HCL100 MG PO (14:53)
[2017-10-13] MEDS ORDERED: VANCOMYCIN HCL125 MG PO (14:54)
[2017-10-13 15:50] VITALS: BP 136/82
== END 2017-10-13 17:00 | DRG 281 ==
LOC: EME 09:50 → EDOF 13:45 → 4EAST 13:45 → ENRESERV 14:22 → EDOF 14:23 → ENRESERV 18:19 → 4EAST 20:21
PROVIDERS: Emergency Medicine; Internal Medicine
PROC: 02HV33Z Insertion of Infusion Device into Superior Vena Cava, Percutaneous Approach (ICD-10-PCS; principal; 2017-10-07)
PROC: 3E043GC Introduction of Other Therapeutic Substance into Central Vein, Percutaneous Approach (ICD-10-PCS; 2017-10-12)
DX: I47.2 Ventricular tachycardia (principal); I21.A1 Myocardial infarction type 2; I69.351 Hemiplegia and hemiparesis following cerebral infarction affecting right dominant side; N39.0 Urinary tract infection, site not specified; A04.72 Enterocolitis due to Clostridium difficile, not specified as recurrent; R47.01 Aphasia; G90.511 Complex regional pain syndrome I of right upper limb; I47.1 Supraventricular tachycardia; I25.10 Atherosclerotic heart disease of native coronary artery without angina pectoris; N35.9 Urethral stricture, unspecified; J43.9 Emphysema, unspecified; I10 Essential (primary) hypertension; F17.210 Nicotine dependence, cigarettes, uncomplicated; E78.5 Hyperlipidemia, unspecified; D64.9 Anemia, unspecified; F29 Unspecified psychosis not due to a substance or known physiological condition; F43.21 Adjustment disorder with depressed mood; R13.10 Dysphagia, unspecified; I95.9 Hypotension, unspecified; K21.9 Gastro-esophageal reflux disease without esophagitis; Z95.1 Presence of aortocoronary bypass graft; I25.2 Old myocardial infarction; I69.391 Dysphagia following cerebral infarction; I69.320 Aphasia following cerebral infarction; Z87.01 Personal history of pneumonia (recurrent); Z87.440 Personal history of urinary (tract) infections; Z79.82 Long term (current) use of aspirin; Z79.02 Long term (current) use of antithrombotics/antiplatelets; Z79.51 Long term (current) use of inhaled steroids
CPT/HCPCS: 71010; 80048; 80053; 81003; 82607; 82746; 83605; 84484; 85025; 86850; 86900; 86901; 87040; 87086; 87493; 87641; 87801; 93005; 94640; 94640 76; 99281; 99285; C1751; J0696; J1650; J2997; J3370; J7030; Q0175; S0030

== ENCOUNTER 2017-10-25 13:40 | Emergency (ER) | payer OTHER ==
[~2017-10-25] VITALS: Ht 180.3 cm; Wt 95.4 kg
[~2017-10-25 13:40] MED LIST changes: +AMITRIPTYLINE H10 MG PO; +OXYCODONE HCL15 MG PO; +VANCOMYCIN HCL125 MG PO
[2017-10-25 15:58] LABS: APPEARANCE CLOUDY ((CLEAR)); BILIRUBIN NEGATIVE; BLOOD LARGE; COLOR AMBER ((YELLOW)); GLUCOSE (STRIP) NEGATIVE; KETONES NEGATIVE; LEUKOCYTES TRACE; NITRITE NEGATIVE; PROTEIN (STRIP) 30; SPECIFIC GRAVITY 1.012 (1.000-1.030); UROBILINOGEN 0.2 MG/DL (0.2-1.0)
[2017-10-25 16:25] LABS: EPITHELIAL CELLS RARE /HPF; RED BLOOD CELLS TNTC /HPF (0-5)
[2017-10-25 16:26] LABS: BACTERIA 2+ /HPF; MUCUS RARE /LPF; UCUL ADDED? YES
[2017-10-25 16:49] LABS: HEMOGLOBIN 10.2 G/DL (12.5-16.6); MCH 26.2 PG (29.0-34.0); MCHC 30.9 G/DL (30.0-36.0); MCV 84.8 FL (86-99); PLATELET COUNT 290 K/uL (156-360); RBC DIS.WIDTH-CV 18.4 % (11.8-14.6); RBC DIS.WIDTH-SD 57.2 % (39-53); RED BLOOD COUNT 3.89 M/uL (4.00-5.50); WHITE BLOOD COUNT 9.1 K/uL (4.1-10.2)
[2017-10-25 16:58] LABS: CHLORIDE 99 mEq/L (99-109); POTASSIUM 4.6 mEq/L (3.7-5.4); SODIUM 137 mEq/L (136-147)
[2017-10-25 17:00] LABS: GLUCOSE 88 mg/dL (70-99)
[2017-10-25 17:04] LABS: CREATININE 0.7 mg/dL (0.6-1.3); GFR ESTIMATE (CALCULATED) > 59 mL/min/ (58.99-99999)
[2017-10-25 17:05] LABS: UREA NITROGEN (BUN) 14 mg/dL (9-23)
[2017-10-25 19:15] VITALS: BP 101/76
== END 2017-10-25 19:15 ==
LOC: EME 13:40
PROVIDERS: Emergency Medicine
DX: T83.84XA Pain due to genitourinary prosthetic devices, implants and grafts, initial encounter (principal); I69.920 Aphasia following unspecified cerebrovascular disease; I69.951 Hemiplegia and hemiparesis following unspecified cerebrovascular disease affecting right dominant side; K59.00 Constipation, unspecified; N28.1 Cyst of kidney, acquired; I70.0 Atherosclerosis of aorta; I10 Essential (primary) hypertension; E78.5 Hyperlipidemia, unspecified; J44.9 Chronic obstructive pulmonary disease, unspecified; Z95.1 Presence of aortocoronary bypass graft; Z79.02 Long term (current) use of antithrombotics/antiplatelets; Z87.891 Personal history of nicotine dependence
CPT/HCPCS: 74176; 80048; 81003; 85027; 87086; 99281; 99284

== ENCOUNTER 2017-12-14 16:19 | Inpatient (IN) | payer OTHER ==
[~2017-12-14] VITALS: Ht 182.9 cm; Wt 86.5 kg
[~2017-12-14 16:19] MED LIST changes: -FLEET ENEMA-AD118 ML PR; +FLEET MINERAL133 ML PR; +OXYCODONE HCL E15 MG PO; -OXYCODONE HCL10 MG PO
[2017-12-14 17:54] LABS: HEMATOCRIT 38.8 % (38.0-50.0); HEMOGLOBIN 11.8 G/DL (12.5-16.6); MCH 25.5 PG (29.0-34.0); MCHC 30.4 G/DL (30.0-36.0); RBC DIS.WIDTH-CV 20.2 % (11.8-14.6); RBC DIS.WIDTH-SD 61.5 % (39-53); RED BLOOD COUNT 4.62 M/uL (4.00-5.50); WHITE BLOOD COUNT 15.2 K/uL (4.1-10.2)
[2017-12-14 18:04] LABS: TROP-I INTERPRETATION NEGATIVE; TROPONIN-I 0.01 ng/mL (0.0-0.30)
[2017-12-14 18:08] LABS: PLATELET COUNT 237 K/uL (156-360)
[2017-12-14 18:09] LABS: BASOPHIL (%) 0.1 % (0-1); EOSINOPHIL (%) 0.1 % (0-5); IMMATURE GRANULOCYTE (%) 0.3 % (0.0-0.7); LYMPHOCYTE (%) 2.2 % (15-42); LYMPHOCYTE COUNT 0.3 K/uL (1.0-2.8); MONOCYTE (%) 2.9 % (3-12); MONOCYTE COUNT 0.4 K/uL (0-0.8); NEUTROPHIL (%) 94.4 % (45-76); NEUTROPHIL COUNT 14.3 K/uL (1.8-6.4)
[2017-12-14 18:36] LABS: CHLORIDE 106 MEQ/L (99-109); POTASSIUM 4.3 MEQ/L (3.7-5.4); SODIUM 141 MEQ/L (136-147)
[2017-12-14 18:40] LABS: BASE EXCESS -3.7 mEq/L (-3 to +3); BICARBONATE 20.4 mEq/L (22-26); CARBOXY HGB 1.4 % (0-5); PCO2 33 mm Hg (35-45); PO2 67 mm Hg (80-100)
[2017-12-14 18:41] LABS: CREATININE 0.9 MG/DL (0.6-1.3); GFR ESTIMATE (CALCULATED) > 59 mL/min/ (58.99-99999); GLUCOSE 115 mg/dL (70-99)
[2017-12-14 18:41] LABS: COMMENTS - BLOOD GASES A+C+; DEVICE NRBM; FI02 100 %; O2 FLOW 15 L/MIN; SITE RR; TOTAL RESP RATE 24 resp/min
[2017-12-14 18:42] LABS: UREA NITROGEN (BUN) 25 mg/dL (9-23)
[2017-12-14] MEDS ORDERED: PROBIOTIC1 EAC1 PO (20:24)
[2017-12-14] MEDS ORDERED: IRON325 M1 PO (20:26)
[2017-12-14] MEDS ORDERED: PROVENTIL,2.5 MG/3 M IH (20:35)
[2017-12-14] MEDS ORDERED: OXYCODONE HCL10 MG PO (20:39)
[2017-12-14] MEDS ORDERED: PRUNE JUICE PO (20:42)
[2017-12-14 21:30] VITALS: BP 121/71
[2017-12-14 21:34] LABS: INTER. NORMALIZED RATIO 1.5
[2017-12-14 21:37] LABS: PTT 28.1 SEC (25-37)
[2017-12-15] VITALS: BP 101/59
[2017-12-15] MEDS ORDERED: AMITRIPTYLINE H25 MG PO (01:25)
[2017-12-15] MEDS ORDERED: ADULT ASPIRIN R81 MG PO (01:26)
[2017-12-15] MEDS ORDERED: LIPITOR80 MG PO (01:27)
[2017-12-15] MEDS ORDERED: PLAVIX75 MG PO (01:27)
[2017-12-15] MEDS ORDERED: PERPHENAZINE2 MG PO (01:28)
[2017-12-15] MEDS ORDERED: KLOR-CON M2020 MEQ PO (01:29)
[2017-12-15] MEDS ORDERED: ACID CONTROL150 MG PO (01:30)
[2017-12-15] MEDS ORDERED: SENNA PLUS TAB1 EACH PO (01:31)
[2017-12-15] MEDS ORDERED: THIAMINE HCL100 MG PO (01:31)
[2017-12-15] MEDS ORDERED: DESYREL100 MG PO (01:32)
[2017-12-15] MEDS ORDERED: ZOLOFT100 MG PO (01:33)
[2017-12-15] MEDS ORDERED: ADVAIR HFA120 INHAL1 IH (01:34)
[2017-12-15] MEDS ORDERED: FEOSOL325 MG PO (01:35)
[2017-12-15] MEDS ORDERED: LOPRESSOR50 MG PO (01:36)
[2017-12-15] MEDS ORDERED: MUCINEX600 MG PO (01:38)
[2017-12-15 04:01] VITALS: BP 118/67
[2017-12-15 07:17] VITALS: BP 116/71
[2017-12-15 12:45] VITALS: BP 155/91
[2017-12-15 16:28] VITALS: BP 131/78
[2017-12-15 18:45] VITALS: BP 146/77
[2017-12-15 21:49] LABS: C DIFF TOXIN NEGATIVE (NEGATIVE)
[2017-12-16] VITALS (7 sets, daily range): BP systolic 146–178; BP diastolic 77–101
[2017-12-16 09:07] LABS: ALBUMIN 2.5 G/DL (3.2-4.8); ALKALINE PHOSPHATASE 133 IU/L (3-129); ALT (GPT) 24 IU/L (3-49); AST (GOT) 23 IU/L (2-34); CHLORIDE 112 MEQ/L (99-109); SODIUM 143 MEQ/L (136-147); TOTAL BILIRUBIN 0.5 MG/DL (0.0-1.0); TOTAL PROTEIN 5.9 G/DL (6.4-8.3); UREA NITROGEN (BUN) 10 mg/dL (9-23)
[2017-12-16 09:09] LABS: CREATININE 0.4 MG/DL (0.6-1.3); GFR ESTIMATE (CALCULATED) > 59 mL/min/ (58.99-99999); GLUCOSE 83 mg/dL (70-99); HEMATOCRIT 29.3 % (38.0-50.0); MCH 25.4 PG (29.0-34.0); MCHC 30.4 G/DL (30.0-36.0); MCV 83.5 FL (86-99); POTASSIUM 2.5 MEQ/L (3.7-5.4); RBC DIS.WIDTH-CV 19.7 % (11.8-14.6); RBC DIS.WIDTH-SD 59.9 % (39-53); WHITE BLOOD COUNT 7.2 K/uL (4.1-10.2)
[2017-12-16 09:13] LABS: HEMOGLOBIN 8.9 G/DL (12.5-16.6); RED BLOOD COUNT 3.51 M/uL (4.00-5.50)
[2017-12-16 09:15] LABS: PLAT.SUFFICIENCY ADEQUATE
[2017-12-16 09:17] LABS: PLATELET COUNT 145 K/uL (156-360)
[2017-12-17 03:30] VITALS: BP 154/91
[2017-12-17 05:34] LABS: HEMATOCRIT 27.1 % (38.0-50.0); HEMOGLOBIN 8.6 G/DL (12.5-16.6); MCH 25.7 PG (29.0-34.0); MCHC 31.7 G/DL (30.0-36.0); MCV 80.9 FL (86-99); PLATELET COUNT 154 K/uL (156-360); RBC DIS.WIDTH-CV 19.1 % (11.8-14.6); RBC DIS.WIDTH-SD 57.1 % (39-53); RED BLOOD COUNT 3.35 M/uL (4.00-5.50); WHITE BLOOD COUNT 5.7 K/uL (4.1-10.2)
[2017-12-17 06:12] LABS: ALBUMIN 2.4 G/DL (3.2-4.8); ALKALINE PHOSPHATASE 125 IU/L (3-129); ALT (GPT) 26 IU/L (3-49); AST (GOT) 25 IU/L (2-34); CHLORIDE 109 MEQ/L (99-109); CREATININE 0.5 MG/DL (0.6-1.3); GFR ESTIMATE (CALCULATED) > 59 mL/min/ (58.99-99999); GLUCOSE 76 mg/dL (70-99); POTASSIUM 2.7 MEQ/L (3.7-5.4); SODIUM 143 MEQ/L (136-147); TOTAL BILIRUBIN 0.5 MG/DL (0.0-1.0); TOTAL PROTEIN 5.1 G/DL (6.4-8.3); UREA NITROGEN (BUN) 5 mg/dL (9-23)
[2017-12-17 08:00] VITALS: BP 171/108
[2017-12-17 11:30] VITALS: BP 160/105
[2017-12-17 16:10] VITALS: BP 163/89
[2017-12-17 20:00] VITALS: BP 165/97
[2017-12-17 23:50] VITALS: BP 141/90
[2017-12-18 04:00] VITALS: BP 149/92
[2017-12-18 05:37] LABS: ALBUMIN 2.6 G/DL (3.2-4.8); ALKALINE PHOSPHATASE 127 IU/L (3-129); ALT (GPT) 23 IU/L (3-49); AST (GOT) 18 IU/L (2-34); CHLORIDE 112 MEQ/L (99-109); CREATININE 0.7 MG/DL (0.6-1.3); GFR ESTIMATE (CALCULATED) > 59 mL/min/ (58.99-99999); GLUCOSE 80 mg/dL (70-99); SODIUM 143 MEQ/L (136-147); TOTAL BILIRUBIN 0.5 MG/DL (0.0-1.0); TOTAL PROTEIN 5.5 G/DL (6.4-8.3); UREA NITROGEN (BUN) 6 mg/dL (9-23)
[2017-12-18 07:55] VITALS: BP 165/95
[2017-12-18 12:00] VITALS: BP 165/95
[2017-12-18 16:10] VITALS: BP 141/88
[2017-12-18 20:01] VITALS: BP 163/87
[2017-12-19] VITALS: BP 152/84
[2017-12-19 04:11] VITALS: BP 146/72
[2017-12-19 06:14] LABS: HEMATOCRIT 30.5 % (38.0-50.0); HEMOGLOBIN 9.4 G/DL (12.5-16.6); MCH 25.1 PG (29.0-34.0); MCHC 30.8 G/DL (30.0-36.0); MCV 81.6 FL (86-99); PLATELET COUNT 187 K/uL (156-360); RBC DIS.WIDTH-CV 19.6 % (11.8-14.6); RBC DIS.WIDTH-SD 58.2 % (39-53); RED BLOOD COUNT 3.74 M/uL (4.00-5.50); WHITE BLOOD COUNT 6.4 K/uL (4.1-10.2)
[2017-12-19 07:00] VITALS: BP 134/98
[2017-12-19 09:25] LABS: ALBUMIN 2.5 G/DL (3.2-4.8); ALKALINE PHOSPHATASE 109 IU/L (3-129); ALT (GPT) 18 IU/L (3-49); AST (GOT) 13 IU/L (2-34); CHLORIDE 109 MEQ/L (99-109); CREATININE 0.8 MG/DL (0.6-1.3); GFR ESTIMATE (CALCULATED) > 59 mL/min/ (58.99-99999); GLUCOSE 86 mg/dL (70-99); POTASSIUM 3.3 MEQ/L (3.7-5.4); SODIUM 141 MEQ/L (136-147); TOTAL BILIRUBIN 0.5 MG/DL (0.0-1.0); TOTAL PROTEIN 5.3 G/DL (6.4-8.3); UREA NITROGEN (BUN) 7 mg/dL (9-23)
[2017-12-19 12:47] LABS: ALBUMIN 2.6 G/DL (3.2-4.8); ALKALINE PHOSPHATASE 113 IU/L (3-129); ALT (GPT) 18 IU/L (3-49); AST (GOT) 15 IU/L (2-34); CHLORIDE 111 MEQ/L (99-109); CREATININE 0.8 MG/DL (0.6-1.3); GFR ESTIMATE (CALCULATED) > 59 mL/min/ (58.99-99999); POTASSIUM 3.5 MEQ/L (3.7-5.4); SODIUM 140 MEQ/L (136-147); UREA NITROGEN (BUN) 7 mg/dL (9-23)
[2017-12-19 12:50] LABS: GLUCOSE 115 mg/dL (70-99); TOTAL BILIRUBIN 0.3 MG/DL (0.0-1.0)
[2017-12-19 16:31] VITALS: BP 166/106
[2017-12-19 17:45] VITALS: BP 179/102
[2017-12-19 19:30] VITALS: BP 154/94
[2017-12-20 04:13] VITALS: BP 160/98
[2017-12-20 04:23] VITALS: BP 129/86
[2017-12-20 06:45] VITALS: BP 151/87
[2017-12-20 09:26] LABS: HEMATOCRIT 34.1 % (38.0-50.0); HEMOGLOBIN 10.8 G/DL (12.5-16.6); MCH 25.7 PG (29.0-34.0); MCHC 31.7 G/DL (30.0-36.0); MCV 81.2 FL (86-99); PLATELET COUNT 205 K/uL (156-360); RBC DIS.WIDTH-CV 20.2 % (11.8-14.6); RBC DIS.WIDTH-SD 58.9 % (39-53)
[2017-12-20 09:51] LABS: ALBUMIN 2.8 G/DL (3.2-4.8); ALKALINE PHOSPHATASE 119 IU/L (3-129); ALT (GPT) 17 IU/L (3-49); AST (GOT) 15 IU/L (2-34); CHLORIDE 110 MEQ/L (99-109); CREATININE 0.8 MG/DL (0.6-1.3); GFR ESTIMATE (CALCULATED) > 59 mL/min/ (58.99-99999); GLUCOSE 108 mg/dL (70-99); POTASSIUM 3.7 MEQ/L (3.7-5.4); SODIUM 139 MEQ/L (136-147); TOTAL PROTEIN 5.8 G/DL (6.4-8.3); UREA NITROGEN (BUN) 6 mg/dL (9-23)
[2017-12-20 09:59] LABS: TOTAL BILIRUBIN 0.4 MG/DL (0.0-1.0)
[2017-12-20 15:44] VITALS: BP 158/92
[2017-12-20] MEDS ORDERED: OXYCODONE HCL5 MG PO (16:26)
[2017-12-20] MEDS ORDERED: OXAYDO5 MG PO (16:28)
[2017-12-20] MEDS ORDERED: AUGMENTIN875 MG PO (16:30)
[2017-12-20 19:45] VITALS: BP 150/85
== END 2017-12-20 21:00 | DRG 177 ==
LOC: EME 16:19 → EDOF 19:30 → 4EAST 19:30 → ENRESERV 19:50 → 4EAST 21:33
PROVIDERS: Emergency Medicine; Family Medicine; Internal Medicine
DX: J69.0 Pneumonitis due to inhalation of food and vomit (principal); J96.21 Acute and chronic respiratory failure with hypoxia; I95.9 Hypotension, unspecified; E86.0 Dehydration; E87.6 Hypokalemia; D64.9 Anemia, unspecified; I10 Essential (primary) hypertension; E78.5 Hyperlipidemia, unspecified; I25.10 Atherosclerotic heart disease of native coronary artery without angina pectoris; J43.9 Emphysema, unspecified; K21.9 Gastro-esophageal reflux disease without esophagitis; F32.9 Major depressive disorder, single episode, unspecified; R33.9 Retention of urine, unspecified; I69.351 Hemiplegia and hemiparesis following cerebral infarction affecting right dominant side; I69.320 Aphasia following cerebral infarction; I25.2 Old myocardial infarction; Z86.74 Personal history of sudden cardiac arrest; Z95.1 Presence of aortocoronary bypass graft; Z87.891 Personal history of nicotine dependence; Z79.02 Long term (current) use of antithrombotics/antiplatelets
CPT/HCPCS: 36600; 71045; 71046; 74230; 80048; 80053; 80202; 82803; 82948; 83605; 83880; 84484; 85025; 85027; 85610; 85730; 87040; 87493; 92526 GN; 92610 GN; 92611 GN; 93005; 94640; 94640 76; 94760; 94799; 99202; 99281; 99285; J0360; J1650; J2270; J2543; J3370; J7030; J7050

== ENCOUNTER 2017-12-22 08:33 | Inpatient (IN) | payer OTHER ==
[~2017-12-22] VITALS: Ht 172.7 cm; Wt 74.8 kg
[~2017-12-22 08:33] MED LIST changes: +ACID CONTROL150 MG PO; +ADULT ASPIRIN R81 MG PO; +AMITRIPTYLINE H25 MG PO; +AUGMENTIN875 MG PO; +DESYREL100 MG PO; +FEOSOL325 MG PO; +IRON325 M1 PO; +KLOR-CON M2020 MEQ PO; +LIPITOR80 MG PO; +LOPRESSOR50 MG PO; +MUCINEX600 MG PO; +OXAYDO5 MG PO; +OXYCODONE HCL10 MG PO; +OXYCODONE HCL5 MG PO; +PLAVIX75 MG PO; +PROBIOTIC1 EAC1 PO; +PROVENTIL,2.5 MG/3 M IH; +PRUNE JUICE PO; +ZOLOFT100 MG PO
[2017-12-22 09:10] LABS: HEMOGLOBIN 9.7 G/DL (12.5-16.6); MCH 25.9 PG (29.0-34.0); MCHC 32.3 G/DL (30.0-36.0); PLATELET COUNT 284 K/uL (156-360); RBC DIS.WIDTH-CV 19.9 % (11.8-14.6); RBC DIS.WIDTH-SD 57.8 % (39-53); RED BLOOD COUNT 3.75 M/uL (4.00-5.50); WHITE BLOOD COUNT 7.1 K/uL (4.1-10.2)
[2017-12-22 09:16] LABS: CHLORIDE 106 mEq/L (99-109); POTASSIUM 3.3 mEq/L (3.7-5.4); SODIUM 136 mEq/L (136-147)
[2017-12-22 09:18] LABS: GLUCOSE 110 mg/dL (70-99)
[2017-12-22 09:22] LABS: CREATININE 0.7 mg/dL (0.6-1.3); GFR ESTIMATE (CALCULATED) > 59 mL/min/ (58.99-99999)
[2017-12-22 09:23] LABS: UREA NITROGEN (BUN) 5 mg/dL (9-23)
[2017-12-22 09:25] LABS: TROP-I INTERPRETATION NEGATIVE; TROPONIN-I 0.01 ng/mL (0.0-0.30)
[2017-12-22] MEDS ORDERED: AUGMENTIN875 MG PO (17:17)
[2017-12-22] MEDS ORDERED: NIZORAL SHAMPO120 ML TP (17:20)
[2017-12-22 17:32] LABS: APPEARANCE CLEAR ((CLEAR)); BILIRUBIN NEGATIVE; BLOOD NEGATIVE; COLOR YELLOW ((YELLOW)); GLUCOSE (STRIP) NEGATIVE; KETONES 5; LEUKOCYTES NEGATIVE; NITRITE NEGATIVE; PROTEIN (STRIP) NEGATIVE; SPECIFIC GRAVITY 1.033 (1.000-1.030); UCUL ADDED? NO; UROBILINOGEN 0.2 MG/DL (0.2-1.0)
[2017-12-22 22:05] VITALS: BP 150/90
[2017-12-23 00:11] VITALS: BP 154/97
[2017-12-23 06:39] LABS: CHLORIDE 109 MEQ/L (99-109); CREATININE 0.7 MG/DL (0.6-1.3); GFR ESTIMATE (CALCULATED) > 59 mL/min/ (58.99-99999); POTASSIUM 3.9 MEQ/L (3.7-5.4); SODIUM 139 MEQ/L (136-147); UREA NITROGEN (BUN) 6 mg/dL (9-23)
[2017-12-23 06:40] LABS: GLUCOSE 78 mg/dL (70-99)
[2017-12-23 07:33] VITALS: BP 174/100
[2017-12-23 11:21] VITALS: BP 116/76
[2017-12-23 15:42] VITALS: BP 124/71
[2017-12-23 19:20] VITALS: BP 134/72
[2017-12-23 23:25] VITALS: BP 130/73
[2017-12-24 03:22] VITALS: BP 141/80
[2017-12-24 08:00] VITALS: BP 155/85
[2017-12-24 11:58] VITALS: BP 162/97
[2017-12-24 15:25] LABS: C DIFF TOXIN NEGATIVE (NEGATIVE)
[2017-12-24 15:38] VITALS: BP 163/90
[2017-12-24 19:16] VITALS: BP 166/88
[2017-12-25 05:10] VITALS: BP 168/90
[2017-12-25 06:56] LABS: BASOPHIL (%) 0.4 % (0-1); EOSINOPHIL (%) 2.1 % (0-5); EOSINOPHIL COUNT 0.1 K/uL (0-0.3); HEMATOCRIT 32.4 % (38.0-50.0); HEMOGLOBIN 10.3 G/DL (12.5-16.6); IMMATURE GRANULOCYTE (%) 0.8 % (0.0-0.7); LYMPHOCYTE (%) 29.5 % (15-42); LYMPHOCYTE COUNT 1.6 K/uL (1.0-2.8); MCH 25.6 PG (29.0-34.0); MCHC 31.8 G/DL (30.0-36.0); MCV 80.6 FL (86-99); MONOCYTE (%) 9.5 % (3-12); MONOCYTE COUNT 0.5 K/uL (0-0.8); NEUTROPHIL (%) 57.7 % (45-76); NEUTROPHIL COUNT 3.1 K/uL (1.8-6.4); PLATELET COUNT 289 K/uL (156-360); RBC DIS.WIDTH-CV 20.6 % (11.8-14.6); RBC DIS.WIDTH-SD 60.9 % (39-53); RED BLOOD COUNT 4.02 M/uL (4.00-5.50); WHITE BLOOD COUNT 5.3 K/uL (4.1-10.2)
[2017-12-25 08:13] VITALS: BP 188/97
[2017-12-25 08:37] LABS: CHLORIDE 110 MEQ/L (99-109); CREATININE 0.7 MG/DL (0.6-1.3); GFR ESTIMATE (CALCULATED) > 59 mL/min/ (58.99-99999); GLUCOSE 93 mg/dL (70-99); POTASSIUM 3.8 MEQ/L (3.7-5.4); SODIUM 139 MEQ/L (136-147); UREA NITROGEN (BUN) 5 mg/dL (9-23)
[2017-12-25] MEDS ORDERED: OXAYDO5 MG PO (15:40)
[2017-12-25] MEDS ORDERED: SEROQUEL50 MG PO (15:40)
[2017-12-25] MEDS ORDERED: LYRICA50 MG PO (15:40)
[2017-12-25 16:04] VITALS: BP 154/81
== END 2017-12-25 19:45 | DRG 178 ==
LOC: EME 08:33 → 3EAST 17:39 → EDOF 17:39 → ENRESERV 18:04 → 3EAST 21:45
PROVIDERS: Emergency Medicine; Internal Medicine
DX: J69.0 Pneumonitis due to inhalation of food and vomit (principal); I69.351 Hemiplegia and hemiparesis following cerebral infarction affecting right dominant side; I69.320 Aphasia following cerebral infarction; I69.398 Other sequelae of cerebral infarction; G90.511 Complex regional pain syndrome I of right upper limb; I69.321 Dysphasia following cerebral infarction; R13.10 Dysphagia, unspecified; R19.7 Diarrhea, unspecified; I47.1 Supraventricular tachycardia; F29 Unspecified psychosis not due to a substance or known physiological condition; Z86.74 Personal history of sudden cardiac arrest; I25.10 Atherosclerotic heart disease of native coronary artery without angina pectoris; I10 Essential (primary) hypertension; I25.2 Old myocardial infarction; J43.9 Emphysema, unspecified; K21.9 Gastro-esophageal reflux disease without esophagitis; Z87.01 Personal history of pneumonia (recurrent); F32.9 Major depressive disorder, single episode, unspecified; Z95.1 Presence of aortocoronary bypass graft; Z87.891 Personal history of nicotine dependence; Z79.02 Long term (current) use of antithrombotics/antiplatelets; Z79.82 Long term (current) use of aspirin
CPT/HCPCS: 71045; 71275; 80048; 80048 91; 81003; 84484; 85025; 85027; 85379; 87040; 87493; 92610 GN; 93005; 94640; 94640 76; 99202; 99281; 99285; J1650; J2270; J2543; J3370; J3480; J7050; Q0175

== ENCOUNTER 2018-02-05 07:51 | Emergency (ER) | payer OTHER ==
[~2018-02-05] VITALS: Ht 177.8 cm; Wt 85.5 kg
[~2018-02-05 07:51] MED LIST changes: +LYRICA50 MG PO; +SEROQUEL50 MG PO
[2018-02-05 09:29] LABS: APPEARANCE CLOUDY ((CLEAR)); BILIRUBIN NEGATIVE; BLOOD LARGE; COLOR AMBER ((YELLOW)); GLUCOSE (STRIP) NEGATIVE; KETONES NEGATIVE; LEUKOCYTES LARGE; NITRITE NEGATIVE; PROTEIN (STRIP) 100; UROBILINOGEN 0.2 MG/DL (0.2-1.0)
[2018-02-05 10:10] LABS: RED BLOOD CELLS 30-40 /HPF (0-5); WHITE BLOOD CELLS TNTC /HPF (0-5)
[2018-02-05 10:11] LABS: BACTERIA 1+ /HPF; EPITHELIAL CELLS NONE SEEN /HPF; MUCUS NONE SEEN /LPF; UCUL ADDED? YES
[2018-02-05] MEDS ORDERED: BACTRIM,SEPT1 TABLET PO (10:39)
[2018-02-05 13:09] VITALS: BP 113/71
== END 2018-02-05 13:12 ==
LOC: EME 07:51
PROVIDERS: Nurse Practitioner Family
PROC: 0T9B70Z Drainage of Bladder with Drainage Device, Via Natural or Artificial Opening (ICD-10-PCS; principal; 2018-02-05)
DX: Z46.6 Encounter for fitting and adjustment of urinary device (principal); N39.0 Urinary tract infection, site not specified; I69.351 Hemiplegia and hemiparesis following cerebral infarction affecting right dominant side; R33.9 Retention of urine, unspecified; J44.9 Chronic obstructive pulmonary disease, unspecified; I10 Essential (primary) hypertension; K21.9 Gastro-esophageal reflux disease without esophagitis; F32.9 Major depressive disorder, single episode, unspecified; Z87.891 Personal history of nicotine dependence; I25.2 Old myocardial infarction; Z95.1 Presence of aortocoronary bypass graft; Z79.02 Long term (current) use of antithrombotics/antiplatelets; Z79.82 Long term (current) use of aspirin; Z88.8 Allergy status to other drugs, medicaments and biological substances
CPT/HCPCS: 81003; 87077; 87086; 87186; 94640; 99281; 99285

== ENCOUNTER 2018-05-27 20:17 | Inpatient (IN) | payer OTHER ==
[~2018-05-27] VITALS: Ht 180.3 cm; Wt 95.7 kg
[~2018-05-27 20:17] MED LIST changes: +BACTRIM,SEPT1 TABLET PO
[2018-05-27 20:51] LABS: BASOPHIL (%) 0.3 % (0-1); EOSINOPHIL (%) 1.3 % (0-5); EOSINOPHIL COUNT 0.1 K/uL (0-0.3); HEMATOCRIT 31.2 % (38.0-50.0); HEMOGLOBIN 10.2 G/DL (12.5-16.6); IMMATURE GRANULOCYTE (%) 0.4 % (0.0-0.7); LYMPHOCYTE (%) 30.7 % (15-42); MCH 27.5 PG (29.0-34.0); MCHC 32.7 G/DL (30.0-36.0); MCV 84.1 FL (86-99); MONOCYTE (%) 7.1 % (3-12); MONOCYTE COUNT 0.7 K/uL (0-0.8); NEUTROPHIL (%) 60.2 % (45-76); NEUTROPHIL COUNT 5.9 K/uL (1.8-6.4); PLATELET COUNT 170 K/uL (156-360); RBC DIS.WIDTH-CV 15.4 % (11.8-14.6); RBC DIS.WIDTH-SD 47.4 % (39-53); RED BLOOD COUNT 3.71 M/uL (4.00-5.50); WHITE BLOOD COUNT 9.8 K/uL (4.1-10.2)
[2018-05-27 20:59] LABS: CHLORIDE 106 mEq/L (99-109); POTASSIUM 4.2 mEq/L (3.7-5.4); SODIUM 140 mEq/L (136-147)
[2018-05-27 21:00] LABS: GLUCOSE 137 mg/dL (70-99)
[2018-05-27 21:04] LABS: CREATININE 1.1 mg/dL (0.6-1.3); GFR ESTIMATE (CALCULATED) > 59 mL/min/ (58.99-99999)
[2018-05-27 21:05] LABS: UREA NITROGEN (BUN) 19 mg/dL (9-23)
[2018-05-27] MEDS ORDERED: LIPITOR20 MG PO (22:41)
[2018-05-27] MEDS ORDERED: LYRICA100 MG PO (22:45)
[2018-05-27] MEDS ORDERED: PYRIDIUM100 MG PO (22:50)
[2018-05-27] MEDS ORDERED: ZOLOFT100 MG PO (22:53)
[2018-05-27] MEDS ORDERED: SEROQUEL12.5 MG PO (22:53)
[2018-05-27] MEDS ORDERED: FLORASTOR250 MG PO (22:59)
[2018-05-27] MEDS ORDERED: ROCEPHIN1000 MG IM (22:59)
[2018-05-27] MEDS ORDERED: OXYCODONE HCL10 MG PO (23:01)
[2018-05-27 23:53] VITALS: BP 91/53
[2018-05-28 02:22] VITALS: BP 91/52
[2018-05-28 03:46] LABS: C DIFF TOXIN POSITIVE (NEGATIVE)
[2018-05-28 05:04] LABS: BASOPHIL (%) 0.4 % (0-1); EOSINOPHIL (%) 1.4 % (0-5); EOSINOPHIL COUNT 0.1 K/uL (0-0.3); HEMATOCRIT 27.3 % (38.0-50.0); HEMOGLOBIN 8.5 G/DL (12.5-16.6); IMMATURE GRANULOCYTE (%) 0.4 % (0.0-0.7); LYMPHOCYTE (%) 42.3 % (15-42); LYMPHOCYTE COUNT 3.2 K/uL (1.0-2.8); MCH 26.9 PG (29.0-34.0); MCHC 31.1 G/DL (30.0-36.0); MCV 86.4 FL (86-99); MONOCYTE (%) 12.2 % (3-12); MONOCYTE COUNT 0.9 K/uL (0-0.8); NEUTROPHIL (%) 43.3 % (45-76); NEUTROPHIL COUNT 3.3 K/uL (1.8-6.4); PLATELET COUNT 139 K/uL (156-360); RBC DIS.WIDTH-CV 15.4 % (11.8-14.6); RBC DIS.WIDTH-SD 48.7 % (39-53); RED BLOOD COUNT 3.16 M/uL (4.00-5.50); WHITE BLOOD COUNT 7.6 K/uL (4.1-10.2)
[2018-05-28 05:17] VITALS: BP 104/58
[2018-05-28 05:41] LABS: ALBUMIN 2.7 G/DL (3.2-4.8); ALKALINE PHOSPHATASE 73 IU/L (3-129); ALT (GPT) 13 IU/L (3-49); AST (GOT) 18 IU/L (2-34); CHLORIDE 109 MEQ/L (99-109); CREATININE 0.9 MG/DL (0.6-1.3); GFR ESTIMATE (CALCULATED) > 59 mL/min/ (58.99-99999); POTASSIUM 3.6 MEQ/L (3.7-5.4); SODIUM 141 MEQ/L (136-147); TOTAL BILIRUBIN 0.3 MG/DL (0.0-1.0); TOTAL PROTEIN 6.4 G/DL (6.4-8.3); UREA NITROGEN (BUN) 18 mg/dL (9-23)
[2018-05-28 05:45] LABS: GLUCOSE 94 mg/dL (70-99)
[2018-05-28 07:08] VITALS: BP 95/60
[2018-05-28 11:57] VITALS: BP 97/54
[2018-05-28 15:04] VITALS: BP 100/58
[2018-05-28 19:00] VITALS: BP 106/56
[2018-05-29] VITALS (7 sets, daily range): BP systolic 109–138; BP diastolic 59–78
[2018-05-29 11:40] LABS: CHLORIDE 114 mEq/L (99-109); POTASSIUM 3.3 mEq/L (3.7-5.4); SODIUM 144 mEq/L (136-147)
[2018-05-29 11:42] LABS: GLUCOSE 114 mg/dL (70-99)
[2018-05-29 11:45] LABS: CREATININE 0.8 mg/dL (0.6-1.3); GFR ESTIMATE (CALCULATED) > 59 mL/min/ (58.99-99999)
[2018-05-29 11:46] LABS: UREA NITROGEN (BUN) 10 mg/dL (9-23)
[2018-05-30] VITALS (7 sets, daily range): BP systolic 138–163; BP diastolic 68–98
[2018-05-30 06:05] LABS: CHLORIDE 113 MEQ/L (99-109); CREATININE 0.7 MG/DL (0.6-1.3); GFR ESTIMATE (CALCULATED) > 59 mL/min/ (58.99-99999); GLUCOSE 87 mg/dL (70-99); POTASSIUM 3.3 MEQ/L (3.7-5.4); SODIUM 143 MEQ/L (136-147); UREA NITROGEN (BUN) 6 mg/dL (9-23)
[2018-05-31 00:13] VITALS: BP 171/82
[2018-05-31 05:59] VITALS: BP 163/97
[2018-05-31 07:31] LABS: BASOPHIL (%) 0.6 % (0-1); EOSINOPHIL (%) 1.7 % (0-5); EOSINOPHIL COUNT 0.1 K/uL (0-0.3); HEMATOCRIT 30.7 % (38.0-50.0); HEMOGLOBIN 9.7 G/DL (12.5-16.6); IMMATURE GRANULOCYTE (%) 0.6 % (0.0-0.7); LYMPHOCYTE (%) 46.8 % (15-42); LYMPHOCYTE COUNT 2.5 K/uL (1.0-2.8); MCH 27.2 PG (29.0-34.0); MCHC 31.6 G/DL (30.0-36.0); MCV 86.2 FL (86-99); MONOCYTE (%) 9.2 % (3-12); MONOCYTE COUNT 0.5 K/uL (0-0.8); NEUTROPHIL (%) 41.1 % (45-76); NEUTROPHIL COUNT 2.2 K/uL (1.8-6.4); PLATELET COUNT 160 K/uL (156-360); RBC DIS.WIDTH-SD 47.9 % (39-53); RED BLOOD COUNT 3.56 M/uL (4.00-5.50); WHITE BLOOD COUNT 5.3 K/uL (4.1-10.2)
[2018-05-31 07:56] LABS: CHLORIDE 116 MEQ/L (99-109); CREATININE 0.7 MG/DL (0.6-1.3); GFR ESTIMATE (CALCULATED) > 59 mL/min/ (58.99-99999); GLUCOSE 83 mg/dL (70-99); POTASSIUM 3.9 MEQ/L (3.7-5.4); SODIUM 143 MEQ/L (136-147); UREA NITROGEN (BUN) 5 mg/dL (9-23)
[2018-05-31 08:34] VITALS: BP 125/61
[2018-05-31 12:30] VITALS: BP 120/72
[2018-05-31] MEDS ORDERED: VANCOMYCIN HCL250 MG PO (15:24)
[2018-05-31] MEDS ORDERED: LOPRESSOR50 MG PO (15:24)
[2018-05-31 15:49] VITALS: BP 145/95
[2018-05-31 23:38] VITALS: BP 145/70
[2018-06-01 04:08] VITALS: BP 145/90
[2018-06-01 07:58] VITALS: BP 131/82
== END 2018-06-01 10:00 | DRG 872 ==
LOC: EME → EDBD 20:17 → 4EAST 22:10 → EDOF 22:10 → ENRESERV 22:49 → 4EAST 23:37 → ENRESERV 05-30 20:09 → CANRESERV 05-30 20:09 → ENRESERV 05-30 20:54 → CANRESERV 05-30 20:54 → ENRESERV 05-30 21:24 → 3EAST 05-30 23:20
PROVIDERS: Emergency Medicine; Internal Medicine
DX: A41.9 Sepsis, unspecified organism (principal); A04.71 Enterocolitis due to Clostridium difficile, recurrent; N39.0 Urinary tract infection, site not specified; B96.4 Proteus (mirabilis) (morganii) as the cause of diseases classified elsewhere; E87.6 Hypokalemia; I95.9 Hypotension, unspecified; I69.351 Hemiplegia and hemiparesis following cerebral infarction affecting right dominant side; I69.320 Aphasia following cerebral infarction; G90.511 Complex regional pain syndrome I of right upper limb; J44.9 Chronic obstructive pulmonary disease, unspecified; R13.10 Dysphagia, unspecified; I25.10 Atherosclerotic heart disease of native coronary artery without angina pectoris; I10 Essential (primary) hypertension; K21.9 Gastro-esophageal reflux disease without esophagitis; M54.9 Dorsalgia, unspecified; F32.9 Major depressive disorder, single episode, unspecified; F29 Unspecified psychosis not due to a substance or known physiological condition; I25.2 Old myocardial infarction; Z86.74 Personal history of sudden cardiac arrest; Z95.1 Presence of aortocoronary bypass graft; Z87.891 Personal history of nicotine dependence
CPT/HCPCS: 71045; 80048; 80053; 80200; 81003; 83605; 85025; 87040; 87493; 87641; 94640; 94799; 99281; 99285; J1580; J1650; J2543; J3260; J3370; J7030; J7050; S0030